=== PATIENT | male | born 1940 ===

== ENCOUNTER → 2023-05-23 | Outpatient (CLI) | payer MEDICARE ==
--- NOTE | 2023-05-24 17:06 | PE ---
EXAMINATION TYPE: PET CT fusion skull to thigh DATE OF EXAM: 05/23/2023 COMPARISON: None Prior PET/CT: None at this location HISTORY: Prostate cancer TECHNIQUE: Following the intravenous administration of 6.61 mCi of gallium 28 PSMA, whole body image s are performed from the skull base to the midthigh. Images are reviewed on the computer in the manuela nal, axial, and sagittal planes. Reconstructed rotating images are created on independent workstatio n and reviewed on the computer. A localization and attenuation correction CT is performed in conjun ction with the PET scan. DLP: 5-0.12 mGycm SCAN: Initial FINDINGS: NECK: There is normal uptake within the salivary glands. Right submandibular gland is larger than th e left THORAX: No abnormal uptake ABDOMEN: No abnormal uptake PELVIS: There is a focus of intense radiotracer within posterior pelvis, image 200, SUV 48.88. There is a punctate area of radiotracer within the right iliac chain region suspicious for metastatic lesio n, image 205. There is intense uptake within the inferior posterior lateral prostate with an SUV of 40.59. OSSEOUS STRUCTURES: No abnormal uptake LOCALIZATION CT: 1.7 cm nodules in the left posterior pelvis corresponding to the uptake on PET. Imag e 201 small nodule on the right image 205 measures 0.9 cm COMPARISON: None IMPRESSION: 1. 2 pelvic nodules with uptake suspicious for metastatic lymph nodes. 2. Patient's primary within the inferior lateral left prostate evident.
== END | disposition home or self-care (01) ==
LOC: RADPETMAIN 09:56
PROVIDERS: ATTEND Urology
DX: C61 Malignant neoplasm of prostate (principal)
CPT/HCPCS: 78815; A9596

== ENCOUNTER → 2023-09-23 | Outpatient (CLI) | payer MEDICARE | END | disposition home or self-care (01) | LOC: LABWHC1 14:16 | PROVIDERS: ATTEND Radiology Radiation Oncology | DX: C61 Malignant neoplasm of prostate (principal); C77.5 Secondary and unspecified malignant neoplasm of intrapelvic lymph nodes | CPT/HCPCS: 87086 ==

== ENCOUNTER → 2023-12-05 | Outpatient (CLI) | payer MEDICARE | END | disposition home or self-care (01) | LOC: LABWHC1 15:13 | PROVIDERS: ATTEND Radiology Radiation Oncology | CPT/HCPCS: 36415; 84153 ==

== ENCOUNTER 2024-07-03 16:40 | Inpatient (IN) | payer MEDICARE ==
--- NOTE | 2024-07-03 17:42 | ED ---
Dizziness HPI - General Chief Complaint: Dizziness Stated Complaint: Dizziness Time Seen by Provider: 07/03/24 17:21 Source: patient Mode of arrival: ambulatory Limitations: no limitations - History of Present Illness Initial Comments: This patient is an 84-year-old man with history of diabetes who presents with complaint that he has been feeling weak and lightheaded or dizzy going back a number of days. He states that he was prompted to check his blood sugar and it was over 500. The patient states that he does take metformin 500 mg usually twice per day but states that he sometimes does not stick to the diabetic diet. Patient denies symptoms of infection, no fever or chills, cough, change in urination or bowel movements. No chest pain. MD Complaint: dizziness, lightheadedness -: days(s) Timing: gradual onset Description: lightheadedness History of Same: Yes Severity: mild Improves With: remaining still Worsens With: nothing Associated Symptoms: weakness, other (Polydipsia) - Related Data Previous Rx's Medication Instructions Recorded Apixaban [Eliquis] 5 mg PO BID #60 tab 07/07/24 Atorvastatin [Lipitor] 20 mg PO HS #30 tab 07/07/24 Dapagliflozin Propanediol [Farxiga] 5 mg PO DAILY #30 tab 07/07/24 Metoprolol Succinate (ER) [Toprol 50 mg PO BID #60 tab 07/07/24 XL] metFORMIN HCL 500 mg PO BID #60 tab 07/07/24 Allergies Allergy/AdvReac Type Severity Reaction Status Date / Time No Known Allergies Allergy Verified 07/04/24 12:02 Review of Systems ROS Statement: Those systems with pertinent positive or pertinent negative responses have been documented in the HPI. ROS Other: All systems not noted in ROS Statement are negative. Constitutional: Reports: weakness. Denies: fever, chills Eyes: Denies: vision change ENT: Denies: throat pain, congestion Respiratory: Denies: cough, dyspnea Cardiovascular: Denies: chest pain, palpitations, edema, syncope Endocrine: Reports: polydipsia Gastrointestinal: Denies: abdominal pain, vomiting, diarrhea Genitourinary: Denies: dysuria, hematuria Musculoskeletal: Denies: back pain Skin: Denies: rash Neurological: Denies: headache, weakness Past Medical History Past Medical History: Atrial Fibrillation, Diabetes Mellitus Additional Past Medical History / Comment(s): prostate cx History of Any Multi-Drug Resistant Organisms: None Reported Additional Past Surgical History / Comment(s): prostate Past Psychological History: No Psychological Hx Reported Smoking Status: Never smoker Past Alcohol Use History: None Reported Past Drug Use History: None Reported General Exam Limitations: no limitations General appearance: alert, in no apparent distress Head exam: Present: atraumatic, normocephalic Eye exam: Present: normal appearance. Absent: scleral icterus, conjunctival injection ENT exam: Present: mucous membranes dry Neck exam: Present: normal inspection Respiratory exam: Present: normal lung sounds bilaterally. Absent: respiratory distress, wheezes, rales, rhonchi, stridor, accessory muscle use Cardiovascular Exam: Present: normal rhythm, tachycardia, normal heart sounds. Absent: systolic murmur, diastolic murmur, rubs, gallop GI/Abdominal exam: Present: soft. Absent: distended, tenderness, guarding, rebound, rigid, mass Extremities exam: Present: normal inspection, normal capillary refill. Absent: pedal edema, calf tenderness Back exam: Present: normal inspection Neurological exam: Present: alert Skin exam: Present: warm, dry, intact, normal color. Absent: rash Course Vital Signs 07/03/24 07/03/24 07/03/24 17:12 21:00 22:29 Temperature 97.9 F Pulse Rate 123 H 78 66 Respiratory 18 18 17 Rate Blood Pressure 95/62 105/80 102/68 O2 Sat by Pulse 95 96 96 Oximetry EKG Findings - EKG Results: EKG: interpreted by ERMD, normal axis EKG shows: tachycardia, atrial fibrillation (Underlying rhythm appears to be atrial flutter with rate 122) - Blocks, Parks, Hypertrophy, ST Abn: QRS axis and voltage: low voltage (<0.5 MV total QRS and <1.0 MV in each precordial lead) Medical Decision Making - Medical Decision Making Was pt. sent in by a medical professional or institution (, PA, ELECTRIC BATH ATTENDANT, urgent care, hospital, or [facility]...) When possible be specific @ -[No] Did you speak to anyone other than the patient for history (EMS, parent, family, police, friend...)? What history was obtained from this source @ -[No] Did you review nursing and triage notes (agree or disagree)? Why? @ -[I reviewed and agree with nursing and triage notes] Were old charts reviewed (outside hosp., previous admission, EMS record, old EKG, old radiological studies, urgent care reports/EKG's, [facility] records)? Report findings @ -[No old charts were reviewed] Differential Diagnosis (chest pain, altered mental status, abdominal pain women, abdominal pain men, vaginal bleeding, weakness, fever, dyspnea, syncope, headache, dizziness, GI bleed, back pain, seizure, CVA, palpatations, mental h ealth, musculoskeletal)? @ -Differential Dizziness: Benign paroxysmal positional Vertigo, Meniere's disease, otitis media, acoustic neuroma, vertebrobasilar insufficiency, cerebellar stroke, encephalitis, hypovolemic, arrhythmia, coronary artery syndrome, anemia, this is not meant to be an all-inclusive list EKG interpreted by me (3pts min.). @ -[I interpreted as above X-rays interpreted by me (1pt min.). @ -[I interpreted as above CT interpreted by me (1pt min.). @ -[None done] U/S interpreted by me (1pt. min.). @ -[None done] What testing was considered but not performed or refused? (CT, X-rays, U/S, labs)? Why? @ -[None] What meds were considered but not given or refused? Why? @ -[None] Did you discuss the management of the patient with other professionals (professionals i.e. , PA, ELECTRIC BATH ATTENDANT, lab, RT, psych nurse, social work supervisor, alfalfa dehydrator operator, teacher, lead security officer, human services case manager)? Give summary @ -[Case discussed with admitting physician and treatment recommendations incorporated Was smoking cessation discussed for >3mins.? @ -[No] Was critical care preformed (if so, how long)? @ -[No] Were there social determinants of health that impacted care today? How? (Homelessness, low income, unemployed, alcoholism, drug addiction, transportation, low edu. Level, literacy, decrease access to med. care, [place] [facility], rehab)? @ -[No] Was there de-escalation of care discussed even if they declined (Discuss DNR or withdrawal of care, Hospice)? DNR status @ -[No] What co-morbidities impacted this encounter? (DM, HTN, Smoking, COPD, CAD, Cancer, CVA, ARF, Chemo, Hep., AIDS, mental health diagnosis, sleep apnea, morbid obesity)? @ -[History of diabetes Was patient admitted / discharged? Hospital course, mention meds given and route, prescriptions, significant lab abnormalities, going to OR and other pertinent info. @ -[Patient is an 84-year-old man who arrives with complaint of feeling weak and dizzy/lightheaded. He has been hyperglycemic. The patient found to be in atrial fibrillation with rapid ventricular rate. The patient is admitted to have cardiology consultation. Patient is started on rate control here, will have further fluids and treatment for hyperglycemia as well. Undiagnosed new problem with uncertain prognosis? @ -[No] Drug Therapy requiring intensive monitoring for toxicity (Heparin, Nitro, Insulin, Cardizem)? @ -[No] Were any procedures done? @ -[No] Diagnosis/symptom? @ -[Acute hyperglycemia in diabetic patient Acute atrial fibrillation with rapid ventricular rate Acute, or Chronic, or Acute on Chronic? @ -[Acute Uncomplicated (without systemic symptoms) or Complicated (systemic symptoms)? @ -[Uncomplicated Side effects of treatment? @ -[No] Exacerbation, Progression, or Severe Exacerbation? @ -[No] Poses a threat to life or bodily function? How? (Chest pain, [place], [place], pneumonia, PE, COPD, DKA, ARF, appy, cholecystitis, CVA, Diverticulitis, Homicidal, Suicidal, threat to staff... and all critical care pts) @ -[No] All treatments are based on ideal body weight as in ED triage - Lab Data Result diagrams: 07/06/24 05:46 07/04/24 06:40 Lab Results 07/03/24 07/03/24 07/03/24 Range/Units 17:30 18:00 18:00 WBC 7.96 (4.50-10.00) 10*3/uL RBC 4.86 (4.40-5.60) 10*6/uL Hgb 16.2 (13.0-17.0) g/dL Hct 44.9 (39.6-50.0) % MCV 92.4 (80.0-97.0) fL MCH 33.3 H (27.0-32.0) pg MCHC 36.1 (32.0-37.0) g/dL Plt Count 149 (140-440) 10*3/uL MPV 9.2 L (9.5-12.2) fL Immature Gran % (Auto) 0.3 % Neutrophils % 79.5 % Lymphocytes % 13.1 % Monocytes % 6.7 % Eosinophils % 0.1 % Basophils % 0.3 % Immature Gran # 0.02 (0.00-0.04) 10*3/uL Neutrophils # 6.34 (1.80-7.70) 10*3/uL Lymphocytes # 1.04 (0.90-5.00) 10*3/uL Monocytes # 0.53 (0.20-1.00) 10*3/uL Eosinophils # 0.01 L (0.04-0.35) 10*3/uL Basophils # 0.02 (0.00-0.10) 10*3/uL Sodium 131 L (137-145) mmol/L Potassium 4.8 (3.5-5.1) mmol/L Chloride 94 L (98-107) mmol/L Carbon Dioxide 22 (22-30) mmol/L Anion Gap 15 mmol/L BUN 21 H (9-20) mg/dL Creatinine 0.82 (0.66-1.25) mg/dL Est GFR (CKD-EPI)AfAm >90 (>60 ml/min/1.73 sqM) Est GFR (CKD-EPI)NonAf 81 (>60 ml/min/1.73 sqM) Glucose 326 H (74-99) mg/dL Lactic Ac Sepsis Rflx Plasma Lactic Acid Boris (0.7-2.0) mmol/L Calcium 9.5 (8.4-10.2) mg/dL Total Bilirubin 1.4 H (0.2-1.3) mg/dL AST 29 (17-59) U/L ALT 28 (4-49) U/L Alkaline Phosphatase 45 (38-126) U/L Troponin I (0.000-0.034) ng/mL Total Protein 7.4 (6.3-8.2) g/dL Albumin 4.5 (3.5-5.0) g/dL Urine Color Light Yellow Urine Appearance Clear (Clear) Urine pH 5.5 (5.0-8.0) Ur Specific [place] 1.012 (1.001-1.035) Urine Protein Negative (Negative) Urine Glucose (UA) 4+ H (Negative) Urine Ketones Trace H (Negative) Urine Blood Negative (Negative) Urine Nitrite Negative (Negative) Urine Bilirubin Negative (Negative) Urine Urobilinogen <2.0 (<2.0) mg/dL Ur Leukocyte Esterase Negative (Negative) Acetone, Qual Negative (Negative) 07/03/24 07/03/24 07/03/24 Range/Units 18:00 18:00 18:30 WBC (4.50-10.00) 10*3/uL RBC (4.40-5.60) 10*6/uL Hgb (13.0-17.0) g/dL Hct (39.6-50.0) % MCV (80.0-97.0) fL MCH (27.0-32.0) pg MCHC (32.0-37.0) g/dL Plt Count (140-440) 10*3/uL MPV (9.5-12.2) fL Immature Gran % (Auto) % Neutrophils % % Lymphocytes % % Monocytes % % Eosinophils % % Basophils % % Immature Gran # (0.00-0.04) 10*3/uL Neutrophils # (1.80-7.70) 10*3/uL Lymphocytes # (0.90-5.00) 10*3/uL Monocytes # (0.20-1.00) 10*3/uL Eosinophils # (0.04-0.35) 10*3/uL Basophils # (0.00-0.10) 10*3/uL Sodium (137-145) mmol/L Potassium (3.5-5.1) mmol/L Chloride (98-107) mmol/L Carbon Dioxide (22-30) mmol/L Anion Gap mmol/L BUN (9-20) mg/dL Creatinine (0.66-1.25) mg/dL Est GFR (CKD-EPI)AfAm (>60 ml/min/1.73 sqM) Est GFR (CKD-EPI)NonAf (>60 ml/min/1.73 sqM) Glucose (74-99) mg/dL Lactic Ac Sepsis Rflx Y Plasma Lactic Acid Boris 3.4 H* (0.7-2.0) mmol/L Calcium (8.4-10.2) mg/dL Total Bilirubin (0.2-1.3) mg/dL AST (17-59) U/L ALT (4-49) U/L Alkaline Phosphatase (38-126) U/L Troponin I 0.023 (0.000-0.034) ng/mL Total Protein (6.3-8.2) g/dL Albumin (3.5-5.0) g/dL Urine Color Urine Appearance (Clear) Urine pH (5.0-8.0) Ur Specific [place] (1.001-1.035) Urine Protein (Negative) Urine Glucose (UA) (Negative) Urine Ketones (Negative) Urine Blood (Negative) Urine Nitrite (Negative) Urine Bilirubin (Negative) Urine Urobilinogen (<2.0) mg/dL Ur Leukocyte Esterase (Negative) Acetone, Qual (Negative) Disposition Clinical Impression: Atrial flutter with rapid ventricular response, Hyperglycemia Disposition: ADMITTED IP TO THIS HOSP Condition: Stable Is patient prescribed a controlled substance at d/c from ED?: No
[2024-07-03 17:58] LABS: Appearance,Urine Clear (Clear); Bilirubin,Urine Negative (Negative); Blood,Urine Negative (Negative); Color,Urine Light Yellow; Glucose,Urine (UA) 4+ (Negative); Ketones,Urine Trace (Negative); Leukocyte Esterase,Urine Negative (Negative); Nitrite,Urine Negative (Negative); PH, Urine 5.5 (5.0-8.0); Protein,Urine Negative (Negative); Specific Gravity,Urine 1.012 (1.001-1.035); Urobilinogen,Urine <2.0 mg/dL (<2.0)
[2024-07-03 18:11] LABS: Basophils # (A) 0.02 10*3/uL (0.00-0.10); Basophils % (A) 0.3 %; Eosinophils # (A) 0.01 10*3/uL (0.04-0.35); Eosinophils % (A) 0.1 %; HCT 44.9 % (39.6-50.0); HGB 16.2 g/dL (13.0-17.0); Lymphocytes # (A) 1.04 10*3/uL (0.90-5.00); Lymphocytes % (A) 13.1 %; MCH 33.3 pg (27.0-32.0); MCHC 36.1 g/dL (32.0-37.0); MCV 92.4 fL (80.0-97.0); Mean Platelet Volume 9.2 fL (9.5-12.2); Monocytes # (A) 0.53 10*3/uL (0.20-1.00); Monocytes % (A) 6.7 %; Neutrophils # (A) 6.34 10*3/uL (1.80-7.70); Neutrophils % (A) 79.5 %; Platelet Count 149 10*3/uL (140-440); RBC 4.86 10*6/uL (4.40-5.60); RDW 11.6 % (11.5-14.5); WBC 7.96 10*3/uL (4.50-10.00)
[2024-07-03] MEDS: SODIUM CHLORIDE 0.9% 1,000 ML IV STA (18:19)
[2024-07-03 18:28] LABS: ALT 28 U/L (4-49); AST 29 U/L (17-59); African American GFR (CKD) >90 (>60 ml/min/1.73 sqM); Albumin 4.5 g/dL (3.5-5.0); Alkaline Phosphatase 45 U/L (38-126); Anion Gap 15 mmol/L; Blood Urea Nitrogen 21 mg/dL (9-20); Calcium 9.5 mg/dL (8.4-10.2); Carbon Dioxide 22 mmol/L (22-30); Chloride 94 mmol/L (98-107); Glucose 326 mg/dL (74-99); Non-African American GFR(CKD) 81 (>60 ml/min/1.73 sqM); Potassium 4.8 mmol/L (3.5-5.1); Sodium 131 mmol/L (137-145); Total Bilirubin 1.4 mg/dL (0.2-1.3); Total Protein 7.4 g/dL (6.3-8.2)
[2024-07-03] MEDS: SODIUM CHLORIDE 0.9% 1,000 ML IV ONE (20:14)
[2024-07-03] MEDS: INSULIN REGULAR 100 UNIT/ML VIAL (IV) SQ STA (20:19)
[2024-07-03] MEDS: DILTIAZEM 125 MG in DEXTROSE 5% IN WATER 100 ML IV SCH (20:20)
[2024-07-03] MEDS: DILTIAZEM 5 MG/ML 5 ML VIAL IVP STA (20:20)
[2024-07-03] MEDS ORDERED: NITROGLYCERIN SL TABS 0.4 MG TAB SUBLINGUAL PRN (20:47)
[2024-07-03] MEDS ORDERED: DEXTROSE 50% SYRINGE 50 ML IVP PRN ×2 (21:46)
--- NOTE | 2024-07-03 22:47 | P.HPIM ---
History of Present Illness H&P Date: 07/03/24 History of present illness; 84-year-old male with PMH of diabetes who presents emerged part send has been feeling weak, lightheaded and dizzy going back "a number of days". States that he was prompted to check his blood sugar and it was > 500. States that he takes metformin 500 mg twice daily, however endorses not maintaining a diabetic diet all the time. He denies fever, chills, cough, change in urination or bowel habits. He notes having felt occasional chest palpitations earlier in the day. On arrival to the emergency room he was noted to be in atrial flutter on EKG. He notes that he had previously been told he was in atrial fibrillation and states that he had followed up with a instrumentation designer, however at that time stated that he was no longer in atrial fibrillation and was not placed on any medications. Labratory review: -WBC 7.96, hemoglobin 16.2, hematocrit 44.9, platelet 149; sodium 131, potassium 4.8, bicarb 22, BUN 21, creatinine 0.82, lactic acid 3.4, calcium 9.5, total bilirubin 1.4, AST 29, ALT 28, alkaline phosphatase 45 - Troponin 0.023 - Urinalysis 4+ glucose with trace ketones Imaging: -EKG done in the ER independently read and interpreted showed heart rate of 122, with atrial flutter/tachycardia with RVR Vitals: - On arrival: Blood pressure 95/62, heart rate 123, respiratory 18, SpO2 95% on room air - Most recently: Blood pressure 105/80, heart rate 78, respiratory 18, SpO2 96% on room air Patient admitted to internal medicine service REVIEW OF SYSTEMS: Pertinent positives and negatives noted in HPI. The rest of the 14-point review of systems is negative. Physical Exam: General: nontoxic, no distress, appears at stated age Derm: warm, dry, intact Head: atraumatic, normocephalic, symmetric Eyes: EOMI, anicteric sclera Mouth: no lip lesion, mucus membranes moist Cardiovascular: S1 S2 regular rate, irregular rhythm Lungs: CTA bilateral, no rales, no accessory muscle use Abdominal: soft, non-tender to palpataion, no appreciable organomegaly Extremities: no gross muscle atrophy, no edema, no contractures Neuro: Alert, Oriented, CNII-XII grossly intact, gait normal Psych: well appearing, appropriate affect Assessment and plan 84-year-old male with PMH of diabetes who presents emerged part send has been feeling weak, lightheaded and dizzy going back "a number of days". States that he was prompted to check his blood sugar and it was > 500. On EKG in the ED he was noted to be in a flutter/tachycardia with RVR. #New onset atrial flutter with RVR - Trend troponins: 0.023 -> 0.024 - Received 5 mg IVP Cardizem in the emergency department - Heart rate on arrival 123, on recheck ~4 hours later 78 - Continue with Cardizem drip at 5 cc/h - Initiate on metoprolol succinate 25 mg twice daily - Echocardiogram ordered, currently pending - [id number] score of 3, indicating recommendation of long-term oral anticoagulation - initiate on Eliquis 5 mg twice daily - TSH ordered, currently pending - Cardiac monitoring - Cardiology consulted #Uncontrolled non-insulin dependent diabetes mellitus - Glucose on arrival shown to be 326 - Urinalysis shows 4+ glucose and trace ketones - Hold any oral medications - Accu-Cheks ACHS, sliding scale initiated - Hemoglobin A1c ordered, currently pending - Monitor for hypoglycemia #Lactic acidosis #Hyponatremia - Lactic acid on arrival 3.4, sodium on arrival 131 - Received 1 L normal saline bolus in ED; will receive another 1 L bolus - Continue monitor lactic acid and BMP GI prophylaxis: None DVT prophylaxis: Eliquis 5 mg twice daily The patient is admitted with an anticipated more than than 2 midnight stay for evaluation of new onset a flutter with RVR. CODE STATUS: Full code Discussed with: Patient Anticipated discharge place: Home Dictation was produced using [employer] dictation software. please excuse any grammatical, word or spelling errors. Mauricio Sandra MD PGY-1 IM Past Medical History Past Medical History: Atrial Fibrillation, Diabetes Mellitus Additional Past Medical History / Comment(s): prostate cx History of Any Multi-Drug Resistant Organisms: None Reported Additional Past Surgical History / Comment(s): prostate Past Psychological History: No Psychological Hx Reported Smoking Status: Never smoker Past Alcohol Use History: None Reported Past Drug Use History: None Reported Medications and Allergies Allergies Allergy/AdvReac Type Severity Reaction Status Date / Time No Known Allergies Allergy Verified 07/03/24 17:24 Physical Exam Vitals: Vital Signs Temp Pulse Resp BP Pulse Ox 07/03/24 21:00 78 18 105/80 96 07/03/24 17:12 97.9 F 123 H 18 95/62 95 Intake and Output 07/03/24 07/03/24 07/03/24 06:59 14:59 22:59 Other: Weight 63.503 kg Results CBC & Chem 7: 07/03/24 18:00 07/04/24 00:12 Labs: Abnormal Lab Results - Last 24 Hours (Table) 07/03/24 07/03/24 07/03/24 Range/Units 17:30 18:00 18:00 MCH 33.3 H (27.0-32.0) pg MPV 9.2 L (9.5-12.2) fL Eosinophils # 0.01 L (0.04-0.35) 10*3/uL Sodium 131 L (137-145) mmol/L Chloride 94 L (98-107) mmol/L BUN 21 H (9-20) mg/dL Glucose 326 H (74-99) mg/dL Plasma Lactic Acid Boris (0.7-2.0) mmol/L Total Bilirubin 1.4 H (0.2-1.3) mg/dL Urine Glucose (UA) 4+ H (Negative) Urine Ketones Trace H (Negative) 07/03/24 Range/Units 18:00 MCH (27.0-32.0) pg MPV (9.5-12.2) fL Eosinophils # (0.04-0.35) 10*3/uL Sodium (137-145) mmol/L Chloride (98-107) mmol/L BUN (9-20) mg/dL Glucose (74-99) mg/dL Plasma Lactic Acid Boris 3.4 H* (0.7-2.0) mmol/L Total Bilirubin (0.2-1.3) mg/dL Urine Glucose (UA) (Negative) Urine Ketones (Negative)
[2024-07-04 00:59] LABS: ALT 24 U/L (4-49); AST 20 U/L (17-59); African American GFR (CKD) >90 (>60 ml/min/1.73 sqM); Albumin 3.5 g/dL (3.5-5.0); Alkaline Phosphatase 45 U/L (38-126); Anion Gap 12 mmol/L; Blood Urea Nitrogen 20 mg/dL (9-20); Calcium 8.9 mg/dL (8.4-10.2); Carbon Dioxide 21 mmol/L (22-30); Chloride 102 mmol/L (98-107); Glucose 169 mg/dL (74-99); Non-African American GFR(CKD) 86 (>60 ml/min/1.73 sqM); Potassium 3.8 mmol/L (3.5-5.1); Sodium 135 mmol/L (137-145); Total Bilirubin 0.6 mg/dL (0.2-1.3); Total Protein 6.2 g/dL (6.3-8.2)
[2024-07-04] MEDS: APIXABAN 2.5 MG TABLET PO SCH (01:13)
[2024-07-04] MEDS: SODIUM CHLORIDE 0.9% 1,000 ML IV ONE (03:29)
[2024-07-04 06:28] LABS: Glucose,Whole Blood 214 mg/dL (70-110)
[2024-07-04] MEDS: INSULIN LISPRO (HumaLOG) 100 UNIT/ML 10 mL VL SQ SCH ×2 (06:48→16:35)
[2024-07-04 07:24] LABS: Basophils # (A) 0.03 10*3/uL (0.00-0.10); Basophils % (A) 0.5 %; Eosinophils # (A) 0.09 10*3/uL (0.04-0.35); Eosinophils % (A) 1.6 %; HCT 36.3 % (39.6-50.0); Immature Platelet Fraction 1.8 % (1.1-6.1); Lymphocytes # (A) 1.46 10*3/uL (0.90-5.00); Lymphocytes % (A) 26.2 %; MCHC 34.7 g/dL (32.0-37.0); Mean Platelet Volume 9.9 fL (9.5-12.2); Monocytes # (A) 0.62 10*3/uL (0.20-1.00); Monocytes % (A) 11.1 %; Neutrophils # (A) 3.37 10*3/uL (1.80-7.70); Neutrophils % (A) 60.4 %; RBC 3.82 10*6/uL (4.40-5.60); RDW 11.8 % (11.5-14.5); WBC 5.58 10*3/uL (4.50-10.00)
[2024-07-04 07:42] LABS: HGB 12.6 g/dL (13.0-17.0)
[2024-07-04 07:46] LABS: African American GFR (CKD) >90 (>60 ml/min/1.73 sqM); Anion Gap 8 mmol/L; Blood Urea Nitrogen 18 mg/dL (9-20); Calcium 8.5 mg/dL (8.4-10.2); Carbon Dioxide 23 mmol/L (22-30); Chloride 104 mmol/L (98-107); Glucose 186 mg/dL (74-99); Magnesium 1.6 mg/dL (1.6-2.3); Non-African American GFR(CKD) 84 (>60 ml/min/1.73 sqM); Potassium 3.8 mmol/L (3.5-5.1); Sodium 135 mmol/L (137-145)
[2024-07-04] MEDS: DAPAGLIFLOZIN PROPANEDIOL 5 MG TABLET PO SCH (08:40)
[2024-07-04] MEDS: METOPROLOL SUCCINATE (ER) 25 MG TAB.ER.24H PO SCH ×2 (08:40→16:34)
[2024-07-04] MEDS: APIXABAN 5 MG TAB PO SCH (08:42)
[2024-07-04 08:58] LABS: HCT 36.3 % (39.6-50.0); HGB 12.9 g/dL (13.0-17.0); MCH 33.7 pg (27.0-32.0); MCHC 35.5 g/dL (32.0-37.0); MCV 94.8 fL (80.0-97.0); Mean Platelet Volume 9.7 fL (9.5-12.2); Platelet Count 142 10*3/uL (140-440); RBC 3.83 10*6/uL (4.40-5.60); RDW 11.9 % (11.5-14.5); WBC 5.04 10*3/uL (4.50-10.00)
[2024-07-04] MEDS ORDERED: ASPIRIN 325 MG TAB PO SCH (09:00)
[2024-07-04 09:02] LABS: Platelet Count 139 10*3/uL (140-440)
[2024-07-04 11:33] LABS: Glucose,Whole Blood 295 mg/dL (70-110)
--- NOTE | 2024-07-04 11:45 | P.CRDCN ---
History of Present Illness Consult date: 07/04/24 Consult reason: atrial flutter History of present illness: This is Leon Knott NP, I'm dictating on behalf of Dr. Cohen's H&P and A&P The patient was interviewed and examined. HPI: Patient is a pleasant 84-year-old male with a past medical history that includes atrial fibrillation, diabetes, and prostate cancer who presents to the hospital with complaints of weakness, lightheadedness, and dizziness, for "a number of days". Patient reports that his blood sugar was very elevated, over 500. He reported feeling occasional palpitations. Due to his concerning symptoms he arrived to the emergency department for evaluation[facility] patient was found to be in atrial flutter with a heart rate in the 120's. He was started on a diltiazem drip, which has controlled his heart rate. Cardiology was consulted due to the atrial flutter. ROS: [No fever, chills, or rigors] [no cough, phlegm, or expectoration] [no nausea, vomiting, or diarrhea] [no hematuria, dysuria] [no musculoskelatal complaints] [no strokes or seizures] [no skin lesions] EXAMINATION: GENERAL: Well-appearing, well-nourished and in no acute distress. NECK: Supple without JVD or thyromegaly. LUNGS: Breath sounds clear to auscultation bilaterally. Respiration equal and unlabored. No wheezes, rales or rhonchi. HEART: Regular rate and rhythm without murmurs, rubs or gallops. S1 and S2 heard. EXTREMITIES: Normal range of motion, no edema. No clubbing or cyanosis. Peripheral pulses intact and strong. REVIEW OF LABS, ECG & MEDICAL DATA: LABS: White count 5, hemoglobin 12.9, platelets 142, sodium 135, potassium 3.8, chloride 104, BUN 18, creatinine 0.76, hemoglobin A1c 9.2, calcium 8.5, magnesium 1.6, troponin-0.023, 0.024, 0.029, TSH 3.23 EKG: Atrial flutter IMAGING: No imaging VITALS: Temp 97.8, pulse 62, respirations 17, blood pressure 94/60, O2 saturation 95% on room air IMPRESSION: 1. Atrial flutter/tachycardia, currently controlled 2. Type 2 diabetes 3. Anemia of unknown origin, patient had a 4 g drop in hemoglobin since admission. PLAN: Increase metoprolol to 25 mg 3 times a day. Discontinue diltiazem drip. Recommend GI consult for anemia workup. Further recommendations based on patient's clinical course. Thank you for the consult and allowing us to participate in the care of this patient. Past Medical History Past Medical History: Atrial Fibrillation, Diabetes Mellitus Additional Past Medical History / Comment(s): prostate cx History of Any Multi-Drug Resistant Organisms: None Reported Additional Past Surgical History / Comment(s): prostate Past Anesthesia/Blood Transfusion Reactions: Unable to Obtain Past Psychological History: No Psychological Hx Reported Smoking Status: Never smoker Past Alcohol Use History: None Reported Past Drug Use History: None Reported Medications and Allergies Allergies Allergy/AdvReac Type Severity Reaction Status Date / Time No Known Allergies Allergy Verified 07/03/24 17:24 Physical Exam Vitals: Vital Signs Temp Pulse Pulse Resp BP BP Pulse Ox 07/04/24 08:38 97.8 F 62 17 94/60 95 07/04/24 03:39 97.6 F 91 16 80/58 93 L 07/04/24 00:58 97.8 F 73 16 90/63 95 07/04/24 00:00 97.9 F 83 18 122/67 96 07/03/24 22:29 66 17 102/68 96 07/03/24 21:00 78 18 105/80 96 07/03/24 17:12 97.9 F 123 H 18 95/62 95 Intake and Output 07/03/24 07/04/24 07/04/24 22:59 06:59 14:59 Intake Total 1540 296.917 Output Total 500 Balance 1040 296.917 Intake: Intake, IV Titration 1000 56.917 Amount Diltiazem 125 mg In 56.917 Dextrose 5% in Water 100 ml @ 5 MG/HR 5 mls/hr IV .Q24H [facility] Rx#:[id number] Sodium Chloride 0.9% 1, 1000 000 ml @ 999 mls/hr IV . Q1H1M [facility] Rx#:[id number] Oral 540 240 Output: Urine 500 Other: Voiding Method Urinal Urinal # Voids 1 # Bowel Movements 1 Weight 63.503 kg 65.5 kg Results 07/04/24 08:21 07/04/24 06:40 Cardiac Enzymes 07/03/24 07/03/24 07/03/24 Range/Units 18:00 18:00 21:25 AST 29 (17-59) U/L Troponin I 0.023 0.024 (0.000-0.034) ng/mL 07/04/24 07/04/24 Range/Units 00:01 00:12 AST 20 (17-59) U/L Troponin I 0.029 (0.000-0.034) ng/mL CBC 07/03/24 07/04/24 07/04/24 Range/Units 18:00 06:40 08:21 WBC 7.96 5.58 5.04 (4.50-10.00) 10*3/uL RBC 4.86 3.82 L 3.83 L (4.40-5.60) 10*6/uL Hgb 16.2 12.6 L D 12.9 L (13.0-17.0) g/dL Hct 44.9 36.3 L 36.3 L (39.6-50.0) % Plt Count 149 139 L 142 (140-440) 10*3/uL Comprehensive Metabolic Panel 07/03/24 07/04/24 07/04/24 Range/Units 18:00 00:12 06:40 Sodium 131 L 135 L 135 L (137-145) mmol/L Potassium 4.8 3.8 3.8 (3.5-5.1) mmol/L Chloride 94 L 102 104 (98-107) mmol/L Carbon Dioxide 22 21 L 23 (22-30) mmol/L BUN 21 H 20 18 (9-20) mg/dL Creatinine 0.82 0.72 0.76 (0.66-1.25) mg/dL Glucose 326 H 169 H 186 H (74-99) mg/dL Calcium 9.5 8.9 8.5 (8.4-10.2) mg/dL AST 29 20 (17-59) U/L ALT 28 24 (4-49) U/L Alkaline Phosphatase 45 45 (38-126) U/L Total Protein 7.4 6.2 L (6.3-8.2) g/dL Albumin 4.5 3.5 (3.5-5.0) g/dL Current Medications Generic Name Dose Route Start Last Admin Trade Name Freq PRN Reason Stop Dose Admin Apixaban 5 mg 07/04/24 09:00 07/04/24 10:45 Apixaban 5 Mg Tab PO 5 mg BID ANEL Administration Protocol Dapagliflozin 5 mg 07/04/24 09:00 07/04/24 08:40 Dapagliflozin Propanediol 5 Mg Tablet PO 5 mg DAILY ANEL Administration Dextrose/Water 25 ml 07/03/24 21:46 Dextrose 50% Syringe 50 Ml IVP PER PROTOCOL PRN Hypoglycemia Protocol Dextrose/Water 50 ml 07/03/24 21:46 Dextrose 50% Syringe 50 Ml IVP PER PROTOCOL PRN Hypoglycemia Protocol Insulin Human Lispro 0 unit 07/04/24 07:30 07/04/24 06:48 Insulin Lispro (Humalog) 100 Unit/Ml 10 Ml Vl SQ 2 unit ACHS ANEL Administration Protocol Metoprolol Succinate 25 mg 07/04/24 16:00 Metoprolol Succinate (Er) 25 Mg Tab.Er.24h PO TID ANEL Nitroglycerin 0.4 mg 07/03/24 20:47 Nitroglycerin Sl Tabs 0.4 Mg Tab SUBLINGUAL Q5M PRN Chest Pain Intake and Output 07/03/24 07/04/24 07/04/24 22:59 06:59 14:59 Intake Total 1540 296.917 Output Total 500 Balance 1040 296.917 Intake: Intake, IV Titration 1000 56.917 Amount Diltiazem 125 mg In 56.917 Dextrose 5% in Water 100 ml @ 5 MG/HR 5 mls/hr IV .Q24H [facility] Rx#:[id number] Sodium Chloride 0.9% 1, 1000 000 ml @ 999 mls/hr IV . Q1H1M [facility] Rx#:[id number] Oral 540 240 Output: Urine 500 Other: Voiding Method Urinal Urinal # Voids 1 # Bowel Movements 1 Weight 63.503 kg 65.5 kg 07/04/24 08:21 07/04/24 06:40
[2024-07-04 12:30] LABS: HCT 36.1 % (39.6-50.0); MCH 33.9 pg (27.0-32.0); Mean Platelet Volume 9.6 fL (9.5-12.2); Platelet Count 134 10*3/uL (140-440); RBC 3.84 10*6/uL (4.40-5.60); RDW 11.9 % (11.5-14.5); WBC 5.16 10*3/uL (4.50-10.00)
--- NOTE | 2024-07-04 13:29 | P.PN ---
Subjective Progress Note Date: 07/04/24 Hospital Course: An 84-year-old male with past medical history of poorly controlled type II DM not on insulin, atrial fibrillation, prostate cancer, who presented to the ER on 07/03/2024 with weakness, lightheadedness, lasting for several days. States that he was prompted to check his blood sugar and it was > 500. States that he takes metformin 500 mg twice daily, however endorses not maintaining a diabetic diet all the time. He denies fever, chills, cough, change in urination or bowel hab its. He notes having felt occasional chest palpitations earlier in the day. On arrival to the emergency room he was noted to be in atrial flutter on EKG. He notes that he had previously been told he was in atrial fibrillation and states that he had followed up with a patient care assistant, however at that time stated that he was no longer in atrial fibrillation and was not placed on any medications. Un derwent extensive workup and that showed normal WBC count, hemoglobin 16 point, creatinine 0.8, lactic acid 2.4, total bili 1.4, troponin 0.0 23, UA with glucosuria, EKG showed a flutter with RVR, BP was 96/62 on admission, SpO2 normal. She was admitted with cardiology on consult, was started on Cardizem drip and Eliquis, TTE ordered. TSH was normal. 07/04: Seen examined at bedside, no acute complaints, cardiology increased metoprolol to 25 mg 3 times daily, Cardizem drip was discontinued earlier this morning. Hemoglobin this morning 12.9, no blood in stool or urine reported, repeat hemoglobin stable at 13.0, likely hemodilution, patient received 3 L of IV fluids since admission. A1c 9.2, previously around 8. TTE pending Pertinent positives and negatives as discussed above, a complete review of systems was performed and all other systems are negative. Vitals Signs Reviewed. General: [nontoxic], [no distress], [appears at stated age] Derm: [warm], [dry] Head: [atraumatic], [normocephalic], [symmetric] Eyes: [EOMI], [no lid lag], [anicteric sclera] Mouth: [no lip lesion], [mucus membranes moist] Cardiovascular: [S1S2 reg, tachycardic], [no murmur] Lungs: [CTA bilateral], [no rhonchi, no rales] , [no accessory muscle use] Abdominal: [soft], [ nontender to palpation], [no guarding], [no appreciable organomegaly] Ext: [no gross muscle atrophy], [no edema], [no contractures] Neuro: [ CN II-XI grossly intact], [no focal neuro deficits] Psych: [Alert], [oriented], [appropriate affect] Assessment and Plan: Atrial flutter/tachycardia, now rate controlled - Cardiology consulted, appreciate recommendations, metoprolol increased to 25 mg p.o. 3 times daily - Cardizem drip discontinued - TTE ordered and pending - Continue telemetry - TSH normal Hemoglobin drop, likely hemodilution -Hemoglobin this morning 12.9, no blood in stool or urine reported, repeat hemoglobin stable at 13.0, likely hemodilution, patient received 3 L of IV fluids since admission, discussed with RN - CBC in the morning -Hemoccult pending Uncontrolled type II DM not on home insulin - A1c 9.4 - At basal bolus with Lantus 10, mealtime 3, continue SSI, Accu-Cheks, hypoglycemia precautions Pseudohyponatremia in the settings of hyperglycemia DVT ppx: Eliquis Code status: Full code Anticipated discharge place: Home Anticipated discharge time: 24 to 48 hours Objective - Vital Signs Vital signs: Vital Signs Temp 97.8 F 07/04/24 08:38 Pulse 75 07/04/24 12:11 Resp 17 07/04/24 12:11 BP 122/72 07/04/24 12:11 Pulse Ox 95 07/04/24 08:38 FiO2 Intake & Output 07/03/24 07/04/24 07/04/24 18:59 06:59 18:59 Intake Total 1540 296.917 Output Total 500 Balance 1040 296.917 Weight 63.503 kg 65.5 kg Intake: Intake, IV Titration 1000 56.917 Amount Diltiazem 125 mg In 56.917 Dextrose 5% in Water 100 ml @ 5 MG/HR 5 mls/hr IV .Q24H [facility] Rx#:[id number] Sodium Chloride 0.9% 1, 1000 000 ml @ 999 mls/hr IV . Q1H1M [facility] Rx#:[id number] Oral 540 240 Output: Urine 500 Other: Voiding Method Urinal Urinal # Voids 1 # Bowel Movements 1 - Labs CBC & Chem 7: 07/04/24 12:01 07/04/24 06:40 Labs: Abnormal Lab Results - Last 24 Hours (Table) 07/03/24 07/03/24 07/03/24 Range/Units 17:30 18:00 18:00 RBC (4.40-5.60) 10*6/uL Hgb (13.0-17.0) g/dL Hct (39.6-50.0) % MCH 33.3 H (27.0-32.0) pg Plt Count (140-440) 10*3/uL MPV 9.2 L (9.5-12.2) fL Eosinophils # 0.01 L (0.04-0.35) 10*3/uL Sodium 131 L (137-145) mmol/L Chloride 94 L (98-107) mmol/L Carbon Dioxide (22-30) mmol/L BUN 21 H (9-20) mg/dL Glucose 326 H (74-99) mg/dL POC Glucose (mg/dL) (70-110) mg/dL Hemoglobin A1c (<=6.0) % Plasma Lactic Acid Boris (0.7-2.0) mmol/L Total Bilirubin 1.4 H (0.2-1.3) mg/dL Total Protein (6.3-8.2) g/dL Urine Glucose (UA) 4+ H (Negative) Urine Ketones Trace H (Negative) 07/03/24 07/03/24 07/04/24 Range/Units 18:00 21:25 00:12 RBC (4.40-5.60) 10*6/uL Hgb (13.0-17.0) g/dL Hct (39.6-50.0) % MCH (27.0-32.0) pg Plt Count (140-440) 10*3/uL MPV (9.5-12.2) fL Eosinophils # (0.04-0.35) 10*3/uL Sodium (137-145) mmol/L Chloride (98-107) mmol/L Carbon Dioxide (22-30) mmol/L BUN (9-20) mg/dL Glucose (74-99) mg/dL POC Glucose (mg/dL) (70-110) mg/dL Hemoglobin A1c 9.2 H (<=6.0) % Plasma Lactic Acid Boris 3.4 H* 2.9 H* (0.7-2.0) mmol/L Total Bilirubin (0.2-1.3) mg/dL Total Protein (6.3-8.2) g/dL Urine Glucose (UA) (Negative) Urine Ketones (Negative) 07/04/24 07/04/24 07/04/24 Range/Units 00:12 06:27 06:40 RBC 3.82 L (4.40-5.60) 10*6/uL Hgb 12.6 L D (13.0-17.0) g/dL Hct 36.3 L (39.6-50.0) % MCH 33.0 H (27.0-32.0) pg Plt Count 139 L (140-440) 10*3/uL MPV (9.5-12.2) fL Eosinophils # (0.04-0.35) 10*3/uL Sodium 135 L (137-145) mmol/L Chloride (98-107) mmol/L Carbon Dioxide 21 L (22-30) mmol/L BUN (9-20) mg/dL Glucose 169 H (74-99) mg/dL POC Glucose (mg/dL) 214 H (70-110) mg/dL Hemoglobin A1c (<=6.0) % Plasma Lactic Acid Boris (0.7-2.0) mmol/L Total Bilirubin (0.2-1.3) mg/dL Total Protein 6.2 L (6.3-8.2) g/dL Urine Glucose (UA) (Negative) Urine Ketones (Negative) 07/04/24 07/04/24 07/04/24 Range/Units 06:40 08:21 11:31 RBC 3.83 L (4.40-5.60) 10*6/uL Hgb 12.9 L (13.0-17.0) g/dL Hct 36.3 L (39.6-50.0) % MCH 33.7 H (27.0-32.0) pg Plt Count (140-440) 10*3/uL MPV (9.5-12.2) fL Eosinophils # (0.04-0.35) 10*3/uL Sodium 135 L (137-145) mmol/L Chloride (98-107) mmol/L Carbon Dioxide (22-30) mmol/L BUN (9-20) mg/dL Glucose 186 H (74-99) mg/dL POC Glucose (mg/dL) 295 H (70-110) mg/dL Hemoglobin A1c (<=6.0) % Plasma Lactic Acid Boris (0.7-2.0) mmol/L Total Bilirubin (0.2-1.3) mg/dL Total Protein (6.3-8.2) g/dL Urine Glucose (UA) (Negative) Urine Ketones (Negative) 07/04/24 Range/Units 12:01 RBC 3.84 L (4.40-5.60) 10*6/uL Hgb (13.0-17.0) g/dL Hct 36.1 L (39.6-50.0) % MCH 33.9 H (27.0-32.0) pg Plt Count 134 L (140-440) 10*3/uL MPV (9.5-12.2) fL Eosinophils # (0.04-0.35) 10*3/uL Sodium (137-145) mmol/L Chloride (98-107) mmol/L Carbon Dioxide (22-30) mmol/L BUN (9-20) mg/dL Glucose (74-99) mg/dL POC Glucose (mg/dL) (70-110) mg/dL Hemoglobin A1c (<=6.0) % Plasma Lactic Acid Boris (0.7-2.0) mmol/L Total Bilirubin (0.2-1.3) mg/dL Total Protein (6.3-8.2) g/dL Urine Glucose (UA) (Negative) Urine Ketones (Negative)
--- NOTE | 2024-07-04 15:14 | CA ---
Transthoracic Echo Report Name: Erlin Jameson Age: 84 Gender: M : 1940 Exam Date: 07/04/2024 07:40 Exam Location: [place] [facility] Ht (in): 65 Wt (lb): 140 Ordering Physician: Travon Sandra MD Attending/Referring Phys: [employer] Install[employer] Supervisor Love Mcdonald RDCS Procedure CPT: Indications: new onset a flutter Cardiac Hx: Technical Quality: Good Contrast 1: Total Dose (mL): Contrast 2: Total Dose (mL): MEASUREMENTS (Male / Female) Normal Values 2D ECHO LV Diastolic Diameter PLAX 3.3 cm 4.2 - 5.9 / 3.9 - 5.3 cm LV Systolic Diameter PLAX 2.6 cm IVS Diastolic Thickness 1.0 cm 0.6 - 1.0 / 0.6 - 0.9 cm LVPW Diastolic Thickness 1.2 cm 0.6 - 1.0 / 0.6 - 0.9 cm LV Relative Wall Thickness 0.7 RV Internal Dim ED PLAX 3.3 cm LA Systolic Diameter LX 2.9 cm 3.0 - 4.0 / 2.7 - 3.8 cm LV Diastolic Volume MOD BP 43.8 cm??? 67 - 155 / 56 - 104 cm??? LV Systolic Volume MOD BP 14.0 cm??? 22 - 58 / 19 - 49 cm??? LV Ejection Fraction MOD BP 68.0 % >= 55 % LV Cardiac Index MOD BP 1062.0 cm???/min???m??? LV Diastolic Volume MOD 4C 42.0 cm??? LV Systolic Volume MOD 4C 17.2 cm??? LV Ejection Fraction MOD 4C 59.1 % LV Cardiac Index MOD 4C 884.6 cm???/min???m??? LV Diastolic Length 4C 5.5 cm LV Systolic Length 4C 5.0 cm LV Diastolic Volume MOD 2C 44.0 cm??? LV Systolic Volume MOD 2C 11.5 cm??? LV Ejection Fraction MOD 2C 73.9 % LV Cardiac Index MOD 2C 1159.5 cm???/min???m??? LV Diastolic Length 2C 5.7 cm LV Systolic Length 2C 4.9 cm LA Volume 29.6 cm??? 18 - 58 / 22 - 52 cm??? LA Volume Index 17.3 cm???/m??? 16 - 28 cm???/m??? M-MODE Aortic Root Diameter MM 2.9 cm AV Cusp Separation MM 1.8 cm DOPPLER AV Peak Velocity 104.4 cm/s AV Peak Gradient 4.4 mmHg MV Area PHT 7.2 cm??? MV Deceleration Time 88.0 ms TR Peak Velocity 195.4 cm/s TR Peak Gradient 15.3 mmHg Right Ventricular Systolic Press 19.6 mmHg FINDINGS Left Ventricle Left ventricular ejection fraction is estimated at 55-60 %. Small left ventricular cavity. Left ventricular wall thickness normal. Right Ventricle Mild right ventricular dilatation. Right ventricular systolic pressure within normal limits. Right Atrium Normal right atrial size. No right atrial thrombus or mass seen. Left Atrium Normal left atrial size. No left atrial thrombus or mass present. Mitral Valve Structurally normal mitral valve. No evidence for mitral valve prolapse. No mitral stenosis. Trace mitral regurgitation. Aortic Valve Trileaflet aortic valve. No aortic valve stenosis or regurgitation. Tricuspid Valve Structurally normal tricuspid valve. Mild tricuspid regurgitation. Pulmonic Valve Pulmonic valve not well visualized. No pulmonic regurgitation. Pericardium No pericardial effusion. Aorta Normal size aortic root and proximal ascending aorta. CONCLUSIONS Reason for echo Atrial flutter with RVR Increased LV mass, small LV cavity Preserved LV systolic function Mild RV enlargement Previewed by: Dr. Tariq Cohen MD (Electronically Signed) Final Date: 04 Jul 2024 15:13
[2024-07-04 16:29] LABS: Glucose,Whole Blood 222 mg/dL (70-110)
[2024-07-04 20:11] LABS: Glucose,Whole Blood 199 mg/dL (70-110)
[2024-07-04] MEDS: INSULIN GLARGINE (LANTUS) 100 UNIT/ML SYR SQ SCH (20:31)
[2024-07-05 01:50] LABS: Chol/HDL Ratio 4.93 Ratio
[2024-07-05 06:20] LABS: Glucose,Whole Blood 179 mg/dL (70-110)
[2024-07-05 08:40] LABS: Basophils # (A) 0.03 10*3/uL (0.00-0.10); Basophils % (A) 0.6 %; Eosinophils % (A) 2.1 %; HCT 37.7 % (39.6-50.0); HGB 13.3 g/dL (13.0-17.0); Immature Platelet Fraction 1.7 % (1.1-6.1); Lymphocytes # (A) 1.47 10*3/uL (0.90-5.00); Lymphocytes % (A) 30.7 %; MCH 32.9 pg (27.0-32.0); MCHC 35.3 g/dL (32.0-37.0); MCV 93.3 fL (80.0-97.0); Mean Platelet Volume 9.4 fL (9.5-12.2); Monocytes # (A) 0.44 10*3/uL (0.20-1.00); Monocytes % (A) 9.2 %; Neutrophils # (A) 2.74 10*3/uL (1.80-7.70); Neutrophils % (A) 57.2 %; Platelet Count 132 10*3/uL (140-440); RBC 4.04 10*6/uL (4.40-5.60); RDW 11.7 % (11.5-14.5); WBC 4.79 10*3/uL (4.50-10.00)
--- NOTE | 2024-07-05 09:41 | P.PN ---
Subjective Progress Note Date: 07/05/24 This is Leon Knott NP, I'm dictating on behalf of Dr. Cohen's H&P and A&P. Patient was interviewed and examined. Patient is a pleasant 84-year-old male with a past medical history that includes atrial fibrillation, diabetes, and prostate cancer who presents to the hospital with complaints of weakness, lightheadedness, and dizziness, for "a number of days". Patient reports that his blood sugar was very elevated, over 500. He reported feeling occasional palpitations. Due to his concerning symptoms he arrived to the emergency department for evaluation. In the emergency department the patient was found to be in atrial flutter with a heart rate in the 120's. He was started on a diltiazem drip, which has controlled his heart rate. Cardiology was consulted due to the atrial flutter. 07/05/2024: Patient continues to remain in atrial flutter with a heart rate in the 120s. Yesterday diltiazem was discontinued and the patient was started on metoprolol 25 mg 3 times daily. This is happening between the doses of metoprolol. He is denying chest pain and shortness of breath. GENERAL: Well-appearing, well-nourished and in no acute distress. NECK: Supple without JVD or thyromegaly. LUNGS: Breath sounds clear to auscultation bilaterally. Respiration equal and unlabored. No wheezes, rales or rhonchi. HEART: Regular rate and rhythm without murmurs, rubs or gallops. S1 and S2 heard. EXTREMITIES: Normal range of motion, no edema. No clubbing or cyanosis. Peripheral pulses intact and strong. VITALS: Temp 97.3, yes 125, respirations 16, blood pressure 134/92, O2 saturation 96% on room air TELEMETRY: Atrial flutter, heart rate in the 120s LABS: White count 4.7, hemoglobin 13.3, platelets 132 IMPRESSION: 1. Atrial flutter/tachycardia, currently controlled 2. Type 2 diabetes 3. Anemia of unknown origin, patient had a 4 g drop in hemoglobin since admission. PLAN: Increase metoprolol to 50 mg 3 times daily. Continue to monitor telemetry. If heart rate does not improve, will consider MARTIN with cardioversion. Further recommendations based on patient's clinical course. Objective - Vital Signs Vital signs: Vital Signs Temp 97.3 F L 07/05/24 07:30 Pulse 125 H 07/05/24 07:30 Resp 16 07/05/24 07:30 BP 134/92 07/05/24 07:30 Pulse Ox 96 07/05/24 07:30 FiO2 Intake & Output 07/04/24 07/05/24 07/05/24 18:59 06:59 18:59 Intake Total 776.917 240 Balance 776.917 240 Weight 64 kg Intake: Intake, IV Titration 56.917 Amount Diltiazem 125 mg In 56.917 Dextrose 5% in Water 100 ml @ 5 MG/HR 5 mls/hr IV .Q24H [facility] Rx#:[id number] Oral 720 240 Other: Voiding Method Urinal Urinal # Voids 2 # Bowel Movements 1 - Labs CBC & Chem 7: 07/05/24 07:57 07/04/24 06:40 Labs: Abnormal Lab Results - Last 24 Hours (Table) 07/04/24 07/04/24 07/04/24 Range/Units 00:12 11:31 12:01 RBC 3.84 L (4.40-5.60) 10*6/uL Hct 36.1 L (39.6-50.0) % MCH 33.9 H (27.0-32.0) pg Plt Count 134 L (140-440) 10*3/uL MPV (9.5-12.2) fL POC Glucose (mg/dL) 295 H (70-110) mg/dL Triglycerides 564.00 H (0.00-149.00) mg/dL VLDL Cholesterol, Calc 112.80 H (5.00-40.00) mg/dL HDL Cholesterol 30.40 L (40.00-60.00) mg/dL 07/04/24 07/04/24 07/05/24 Range/Units 16:28 20:10 06:18 RBC (4.40-5.60) 10*6/uL Hct (39.6-50.0) % MCH (27.0-32.0) pg Plt Count (140-440) 10*3/uL MPV (9.5-12.2) fL POC Glucose (mg/dL) 222 H 199 H 179 H (70-110) mg/dL Triglycerides (0.00-149.00) mg/dL VLDL Cholesterol, Calc (5.00-40.00) mg/dL HDL Cholesterol (40.00-60.00) mg/dL 07/05/24 Range/Units 07:57 RBC 4.04 L (4.40-5.60) 10*6/uL Hct 37.7 L (39.6-50.0) % MCH 32.9 H (27.0-32.0) pg Plt Count 132 L (140-440) 10*3/uL MPV 9.4 L (9.5-12.2) fL POC Glucose (mg/dL) (70-110) mg/dL Triglycerides (0.00-149.00) mg/dL VLDL Cholesterol, Calc (5.00-40.00) mg/dL HDL Cholesterol (40.00-60.00) mg/dL
--- NOTE | 2024-07-05 10:58 | P.PN ---
Subjective Progress Note Date: 07/05/24 Hospital Course: An 84-year-old male with past medical history of poorly controlled type II DM not on insulin, atrial fibrillation, prostate cancer, who presented to the ER on 07/03/2024 with weakness, lightheadedness, lasting for several days. States that he was prompted to check his blood sugar and it was > 500. States that he takes metformin 500 mg twice daily, however endorses not maintaining a diabetic diet all the time. He denies fever, chills, cough, change in urination or bowel hab its. He notes having felt occasional chest palpitations earlier in the day. On arrival to the emergency room he was noted to be in atrial flutter on EKG. He notes that he had previously been told he was in atrial fibrillation and states that he had followed up with a testing shaking shipping, however at that time stated that he was no longer in atrial fibrillation and was not placed on any medications. Un derwent extensive workup and that showed normal WBC count, hemoglobin 16 point, creatinine 0.8, lactic acid 2.4, total bili 1.4, troponin 0.0 23, UA with glucosuria, EKG showed a flutter with RVR, BP was 96/62 on admission, SpO2 normal. She was admitted with cardiology on consult, was started on Cardizem drip and Eliquis, TTE ordered. TSH was normal. 07/04: Seen examined at bedside, no acute complaints, cardiology increased metoprolol to 25 mg 3 times daily, Cardizem drip was discontinued earlier this morning. Hemoglobin this morning 12.9, no blood in stool or urine reported, repeat hemoglobin stable at 13.0, likely hemodilution, patient received 3 L of IV fluids since admission. A1c 9.2, previously around 8. TTE preserved LV systolic function, increased LV mass and small LV cavity. 07/05: Seen and examined at bedside, feels better, heart rate goes up to 120s on telemetry, cardiology increase metoprolol to 50 mg 3 times daily, considering MARTIN. Of note, overnight patient had an episode when he got up from bed and felt dizzy and lightheaded, he was helped to the bed, will try compression socks before orthostatic hypotensio, discussed with RN and patient. Pertinent positives and negatives as discussed above, a complete review of systems was performed and all other systems are negative. Vitals Signs Reviewed. General: [nontoxic], [no distress], [appears at stated age] Derm: [warm], [dry] Head: [atraumatic], [normocephalic], [symmetric] Eyes: [EOMI], [no lid lag], [anicteric sclera] Mouth: [no lip lesion], [mucus membranes moist] Cardiovascular: [S1S2 reg, tachycardic], [no murmur] Lungs: [CTA bilateral], [no rhonchi, no rales] , [no accessory muscle use] Abdominal: [soft], [ nontender to palpation], [no guarding], [no appreciable organomegaly] Ext: [no gross muscle atrophy], [no edema], [no contractures] Neuro: [ CN II-XI grossly intact], [no focal neuro deficits] Psych: [Alert], [oriented], [appropriate affect] Assessment and Plan: Atrial flutter/tachycardia - Cardiology consulted, appreciate recommendations, metoprolol increased to 50 mg p.o. 3 times daily, possible MARTIN cardioversion - TTE as above - Continue telemetry - TSH normal Hemoglobin drop, likely hemodilution -Hemoglobin this morning 12.9>13.3, no blood in stool or urine reported, repeat hemoglobin stable at 13.0, likely hemodilution, patient received 3 L of IV fluids since admission, discussed with RN - CBC in the morning, ordered -Hemoccult pending Uncontrolled type II DM not on home insulin - A1c 9.4 - At basal bolus with Lantus 10, mealtime 3, continue SSI, Accu-Cheks, hypoglycemia precautions Pseudohyponatremia in the settings of hyperglycemia DVT ppx: Eliquis Code status: Full code Anticipated discharge place: Home Anticipated discharge time: tbd Objective - Vital Signs Vital signs: Vital Signs Temp 97.3 F L 07/05/24 07:30 Pulse 125 H 07/05/24 07:30 Resp 16 07/05/24 07:30 BP 134/92 07/05/24 07:30 Pulse Ox 96 07/05/24 07:30 FiO2 Intake & Output 07/04/24 07/05/24 07/05/24 18:59 06:59 18:59 Intake Total 776.917 240 Balance 776.917 240 Weight 64 kg Intake: Intake, IV Titration 56.917 Amount Diltiazem 125 mg In 56.917 Dextrose 5% in Water 100 ml @ 5 MG/HR 5 mls/hr IV .Q24H [facility] Rx#:[id number] Oral 720 240 Other: Voiding Method Urinal Urinal # Voids 2 # Bowel Movements 1 - Labs CBC & Chem 7: 07/05/24 07:57 07/04/24 06:40 Labs: Abnormal Lab Results - Last 24 Hours (Table) 07/04/24 07/04/24 07/04/24 Range/Units 00:12 11:31 12:01 RBC 3.84 L (4.40-5.60) 10*6/uL Hct 36.1 L (39.6-50.0) % MCH 33.9 H (27.0-32.0) pg Plt Count 134 L (140-440) 10*3/uL MPV (9.5-12.2) fL POC Glucose (mg/dL) 295 H (70-110) mg/dL Triglycerides 564.00 H (0.00-149.00) mg/dL VLDL Cholesterol, Calc 112.80 H (5.00-40.00) mg/dL HDL Cholesterol 30.40 L (40.00-60.00) mg/dL 07/04/24 07/04/24 07/05/24 Range/Units 16:28 20:10 06:18 RBC (4.40-5.60) 10*6/uL Hct (39.6-50.0) % MCH (27.0-32.0) pg Plt Count (140-440) 10*3/uL MPV (9.5-12.2) fL POC Glucose (mg/dL) 222 H 199 H 179 H (70-110) mg/dL Triglycerides (0.00-149.00) mg/dL VLDL Cholesterol, Calc (5.00-40.00) mg/dL HDL Cholesterol (40.00-60.00) mg/dL 07/05/24 Range/Units 07:57 RBC 4.04 L (4.40-5.60) 10*6/uL Hct 37.7 L (39.6-50.0) % MCH 32.9 H (27.0-32.0) pg Plt Count 132 L (140-440) 10*3/uL MPV 9.4 L (9.5-12.2) fL POC Glucose (mg/dL) (70-110) mg/dL Triglycerides (0.00-149.00) mg/dL VLDL Cholesterol, Calc (5.00-40.00) mg/dL HDL Cholesterol (40.00-60.00) mg/dL
[2024-07-05 11:38] LABS: Glucose,Whole Blood 182 mg/dL (70-110)
[2024-07-05 12:50] VITALS: BMI 23.4
[2024-07-05 16:27] LABS: Glucose,Whole Blood 222 mg/dL (70-110)
[2024-07-05] MEDS: METOPROLOL SUCCINATE (ER) 50 MG TAB.ER.24H PO SCH (17:02)
[2024-07-05 19:38] LABS: Glucose,Whole Blood 167 mg/dL (70-110)
[2024-07-06 06:02] LABS: Glucose,Whole Blood 134 mg/dL (70-110)
[2024-07-06 07:29] LABS: Basophils # (A) 0.05 10*3/uL (0.00-0.10); Eosinophils # (A) 0.13 10*3/uL (0.04-0.35); Eosinophils % (A) 2.5 %; HCT 38.1 % (39.6-50.0); HGB 13.4 g/dL (13.0-17.0); Lymphocytes # (A) 1.79 10*3/uL (0.90-5.00); MCHC 35.2 g/dL (32.0-37.0); MCV 93.8 fL (80.0-97.0); Mean Platelet Volume 9.9 fL (9.5-12.2); Monocytes # (A) 0.48 10*3/uL (0.20-1.00); Monocytes % (A) 9.1 %; Neutrophils % (A) 53.2 %; Platelet Count 141 10*3/uL (140-440); RBC 4.06 10*6/uL (4.40-5.60); RDW 11.7 % (11.5-14.5); WBC 5.26 10*3/uL (4.50-10.00)
--- NOTE | 2024-07-06 08:31 | P.PN ---
Subjective Progress Note Date: 07/06/24 This is Leon Knott NP, I'm dictating on behalf of Dr. Cohen's H&P and A&P. Patient was interviewed and examined. Patient is a pleasant 84-year-old male with a past medical history that includes atrial fibrillation, diabetes, and prostate cancer who presents to the hospital with complaints of weakness, lightheadedness, and dizziness, for "a number of days". Patient reports that his blood sugar was very elevated, over 500. He reported feeling occasional palpitations. Due to his concerning symptoms he arrived to the emergency department for evaluation. In the emergency department the patient was found to be in atrial flutter with a heart rate in the 120's. He was started on a diltiazem drip, which has controlled his heart rate. Cardiology was consulted due to the atrial flutter. 07/05/2024: Patient continues to remain in atrial flutter with a heart rate in the 120s. Yesterday diltiazem was discontinued and the patient was started on metoprolol 25 mg 3 times daily. This is happening between the doses of metoprolol. He is denying chest pain and shortness of breath. 07/06/2024: As of 0730 this morning the patient has converted to normal sinus rhythm. He is feeling okay today. He denies shortness of breath and chest pain. GENERAL: Well-appearing, well-nourished and in no acute distress. NECK: Supple without JVD or thyromegaly. LUNGS: Breath sounds clear to auscultation bilaterally. Respiration equal and unlabored. No wheezes, rales or rhonchi. HEART: Regular rate and rhythm without murmurs, rubs or gallops. S1 and S2 heard. EXTREMITIES: Normal range of motion, no edema. No clubbing or cyanosis. Peripheral pulses intact and strong. VITALS: Temp 97.7, pulse 96, respirations 17, blood pressure 122/81, O2 saturation 96% on room air TELEMETRY: Sinus mechanism LABS: White count 5.2, hemoglobin 13.4, platelets 141 IMPRESSION: 1. Atrial flutter/tachycardia, currently controlled 2. Type 2 diabetes 3. Anemia of unknown origin, patient had a 4 g drop in hemoglobin since admission. PLAN: Increase metoprolol to 75 mg 3 times daily. Patient may be discharged within the next 24 to 48 hours from a cardiology standpoint. Objective - Vital Signs Vital signs: Vital Signs Temp 97.7 F 07/06/24 03:50 Pulse 96 07/06/24 03:50 Resp 17 07/06/24 03:50 BP 122/81 07/06/24 03:50 Pulse Ox 96 07/06/24 03:50 FiO2 Intake & Output 07/05/24 07/06/24 07/06/24 18:59 06:59 18:59 Intake Total 960 Balance 960 Weight 64 kg 63 kg Intake: Oral 960 Other: Voiding Method Urinal Urinal - Labs CBC & Chem 7: 07/06/24 05:46 07/04/24 06:40 Labs: Abnormal Lab Results - Last 24 Hours (Table) 07/05/24 07/05/24 07/05/24 Range/Units 07:57 11:36 16:26 RBC 4.04 L (4.40-5.60) 10*6/uL Hct 37.7 L (39.6-50.0) % MCH 32.9 H (27.0-32.0) pg Plt Count 132 L (140-440) 10*3/uL MPV 9.4 L (9.5-12.2) fL POC Glucose (mg/dL) 182 H 222 H (70-110) mg/dL 07/05/24 07/06/24 07/06/24 Range/Units 19:37 05:46 06:00 RBC 4.06 L (4.40-5.60) 10*6/uL Hct 38.1 L (39.6-50.0) % MCH 33.0 H (27.0-32.0) pg Plt Count (140-440) 10*3/uL MPV (9.5-12.2) fL POC Glucose (mg/dL) 167 H 134 H (70-110) mg/dL
[2024-07-06] MEDS: METOPROLOL SUCCINATE (ER) 25 MG TAB.ER.24H PO SCH (08:42)
[2024-07-06 11:12] LABS: Glucose,Whole Blood 192 mg/dL (70-110)
[2024-07-06 16:41] LABS: Glucose,Whole Blood 180 mg/dL (70-110)
--- NOTE | 2024-07-06 16:57 | P.PN ---
Subjective Progress Note Date: 07/06/24 Patient was seen and examined. Feeling tired. Cardiology has increased Metoprolol to 75 mg PO TID. CBC significant for RBC 4.06, Hct 38.1. EKG shows NSR rate of 78. BP 119/75, HR 75, Tmax 97.5F, RR 16, 96% on RA. General: no distress, appears at stated age Derm: warm, dry Head: atraumatic, normocephalic, symmetric Mouth: no lip lesion, mucus membranes moist Cardiovascular: S1 S2 reg. No murmur. Lungs: Decreased BS bilaterally, no accessory muscle use Ext: no gross muscle atrophy, no edema, no contractures. Neuro: No focal neurologic deficits. Psych: Alert and oriented. Based on my assessment of this patient, this patient meets a high complexity level of care. Atrial flutter: Eliquis 5 mg PO BID for AC. Metoprolol 75 mg PO TID. Telemetry monitoring. Maintain K > 4 and Mg > 2. Possible discharge in the AM if HR remains stable. Cardiology on board. Diabetes mellitus with hyperglycemia: A1c 9.2. Lantus 10 units QHS + Lispro 4 units TID. ISS and Accuchecks ACHS along with hypoglycemic precautions. Resolved: Lactic acidosis. Hyponatremia CODE STATUS: FULL CODE DVT Prophylaxis: Eliquis. GI Prophylaxis: Designated medical POA if patient is not able to make medical decisions for themselves: I have reviewed the following funeral pre need consultant notes: Cardiology. I have reviewed the results of the following tests: CBC I have ordered the following tests: I have discussed the care of this patient with the following independent historian: WANDA. I have independently interpreted the following test below: EKG. I have discussed the management of this patient with the following physician: Objective - Vital Signs Vital signs: Vital Signs Temp 97.5 F L 07/06/24 16:00 Pulse 75 07/06/24 16:00 Resp 16 07/06/24 16:00 BP 119/67 07/06/24 16:00 Pulse Ox 96 07/06/24 16:00 FiO2 Intake & Output 07/05/24 07/06/24 07/06/24 18:59 06:59 18:59 Intake Total 960 440 Balance 960 440 Weight 64 kg 63 kg Intake: IV 20 Invasive Line 1 20 Oral 960 420 Other: Voiding Method Urinal Urinal Urinal # Voids 1 - Labs CBC & Chem 7: 07/06/24 05:46 07/04/24 06:40 Labs: Abnormal Lab Results - Last 24 Hours (Table) 07/05/24 07/06/24 07/06/24 Range/Units 19:37 05:46 06:00 RBC 4.06 L (4.40-5.60) 10*6/uL Hct 38.1 L (39.6-50.0) % MCH 33.0 H (27.0-32.0) pg POC Glucose (mg/dL) 167 H 134 H (70-110) mg/dL 07/06/24 07/06/24 Range/Units 11:11 16:39 RBC (4.40-5.60) 10*6/uL Hct (39.6-50.0) % MCH (27.0-32.0) pg POC Glucose (mg/dL) 192 H 180 H (70-110) mg/dL
[2024-07-06 21:00] LABS: Glucose,Whole Blood 192 mg/dL (70-110)
[2024-07-07 06:13] LABS: Glucose,Whole Blood 144 mg/dL (70-110)
[2024-07-07] MEDS: METOPROLOL SUCCINATE (ER) 50 MG TAB.ER.24H PO SCH (09:39)
[2024-07-07 11:36] VITALS: BP 152/84; PULSE 59; RESP 18; TEMP 97.3
--- NOTE | 2024-07-07 11:41 | P.PN ---
Subjective HISTORY OF PRESENT ILLNESS: Patient examined this morning at bedside. Patient has converted to sinus mechanism and is maintaining sinus mechanism at the time of examination. He is bradycardic with a heart rate in the 40s50s. Denies chest pain or shortness of breath. Denies dizziness or lightheadedness. PHYSICAL EXAM: VITAL SIGNS: Reviewed. GENERAL: Well-developed in no acute distress. NECK: Supple. No JVD or thyromegaly LUNGS: Respirations even and unlabored. Lungs essentially clear to auscultation bilaterally. HEART: Regular rate and rhythm. S1 and S2 heard. EXTREMITIES: Normal range of motion. No clubbing or cyanosis. Peripheral pulses intact. No lower extremity edema ASSESSMENT: New onset typical atrial flutter with RVR, currently maintaining sinus mechanism Sinus bradycardia Anemia of unknown origin Diabetes PLAN: Decrease metoprolol succinate to 50 mg twice a day Continue anticoagulation with Eliquis Patient is stable for discharge home today from a cardiac standpoint Patient to follow-up postdischarge in the office Nurse practitioner note has been reviewed by physician. Signing provider agrees with the documented findings, assessment, and plan of care documented by BULLDOZER/LOADER/COMPACTOR/SCRAPER as a scribe. Objective - Vital Signs Vital signs: Vital Signs Temp 97.3 F L 07/07/24 11:19 Pulse 59 L 07/07/24 11:19 Resp 18 07/07/24 11:19 BP 152/84 07/07/24 11:19 Pulse Ox 98 07/07/24 11:19 FiO2 Intake & Output 07/06/24 07/07/24 07/07/24 18:59 06:59 18:59 Intake Total 620 20 10 Balance 620 20 10 Weight 63.8 kg Intake: IV 20 20 10 Invasive Line 1 20 20 10 Oral 600 Other: Voiding Method Urinal Urinal Urinal # Voids 1 1 1 - Labs CBC & Chem 7: 07/06/24 05:46 07/04/24 06:40 Labs: Abnormal Lab Results - Last 24 Hours (Table) 07/06/24 07/06/24 07/07/24 Range/Units 16:39 20:59 06:12 POC Glucose (mg/dL) 180 H 192 H 144 H (70-110) mg/dL
[2024-07-07 11:45] LABS: Glucose,Whole Blood 237 mg/dL (70-110)
--- NOTE | 2024-07-07 11:50 | P.DS ---
Providers Date of admission: 07/03/24 20:50 Expected date of discharge: 07/07/24 Attending physician: Sylvain Tripathi MD Consults: 07/03/24 20:48 Consult Physician Routine Consulting Provider: Juan José Looney Consult Reason/Comments: New onset atrial flutter with rapid ventricular rate Do you want consulting provider notified?: Yes Primary care physician: Stated None Hospital Course: 84-year-old male with PMH of DM who presents emerged part send has been feeling weak, lightheaded and dizzy. States that he was prompted to check his blood sugar and it was > 500. He notes having felt occasional chest palpitations earlier in the day. On arrival to the emergency room he was noted to be in atrial flutter on EKG. Vital signs in the ED Blood pressure 95/62, heart rate 123, respiratory 18, SpO2 95% on room air. Labs significant for Na 131, Cl 94, BUN 21, glu 326, Lactic acid 3.4-1.9, T. Bili 1.4, Mag 1.6, Trop 0.023-0.024-0.029. Patient was started on Cardizem drip and admitted for Cardiology evaluation. Echo EF 55-60%. Eventually transitioned to Metoprolol and titrated. Also started on Levemir 10 units daily along with Lispro 4 units TID and ISS. 07/07 Patient was seen and examined. Feeling well. Patient was bradycardic this morning, Metoprolol dose decreased to 50 mg PO BID. Cleared by Cardiology for discharge. Discharge Plan: Metoprolol and Eliquis sent to pharmacy. Given glucometer by PCP. His A1c is 9.2. I am hesitant to start him on insulin at this time given his non compliance and feel like a second oral diabetic agent such as Farxiga would benefit the pat ient. Continue Lipitor and Metformin. Discontinue ASA and Lisinopril-HCTZ. Follow up with PCP within 1-[address] Cohen on 07/14. BP 152/84, HR 59, T97.3F, RR 18, 98% on RA. General: no distress, appears at stated age Derm: warm, dry Head: atraumatic, normocephalic, symmetric Mouth: no lip lesion, mucus membranes moist Cardiovascular: S1 S2 jelani. No murmur. Lungs: Decreased BS bilaterally, no accessory muscle use Ext: no gross muscle atrophy, no edema, no contractures. Neuro: No focal neurologic deficits. Psych: Alert and oriented. Discharge Diagnosis: Atrial flutter Diabetes mellitus with hyperglycemia Resolved: Lactic acidosis. Hyponatremia This complex discharge took 35 minutes to complete. Patient Condition at Discharge: Stable Plan - Discharge Summary Discharge Rx Participant: No New Discharge Prescriptions: New Apixaban [Eliquis] 5 mg PO BID #60 tab Dapagliflozin Propanediol [Farxiga] 5 mg PO DAILY #30 tab Metoprolol Succinate (ER) [Toprol XL] 50 mg PO BID #60 tab Continue Atorvastatin [Lipitor] 20 mg PO HS #30 tab metFORMIN HCL 500 mg PO BID #60 tab Discontinued Aspirin EC [Ecotrin Low Dose] 81 mg PO DAILY Lisinopril-Hctz 20-12.5 mg [Zestoretic 20-12.5] 1 tab PO DAILY Discharge Medication List Apixaban [Eliquis] 5 mg PO BID #60 tab 07/07/24 [Rx] Atorvastatin [Lipitor] 20 mg PO HS #30 tab 07/07/24 [Rx] Dapagliflozin Propanediol [Farxiga] 5 mg PO DAILY #30 tab 07/07/24 [Rx] Metoprolol Succinate (ER) [Toprol XL] 50 mg PO BID #60 tab 07/07/24 [Rx] metFORMIN HCL 500 mg PO BID #60 tab 07/07/24 [Rx] Follow up Appointment(s)/Referral(s): Tariq Cohen MD [STAFF PHYSICIAN] - 1 Week Kira Cristina MD [STAFF PHYSICIAN] - 1-2 Days [facility] [NON-STAFF] - (Can help with house keeping and other services) Activity/Diet/Wound Care/Special Instructions: Diet: Diabetic Discharge/Stand Alone Forms: Who Do I Call? Discharge Disposition: HOME SELF-CARE
[2024-07-07] MEDS ORDERED: METOPROLOL SUCCINATE (ER) 25 MG TAB.ER.24H PO SCH (21:00)
== END 2024-07-07 13:43 | disposition home or self-care (01) | DRG 309 ==
LOC: EC 16:40 → 3SCARD 20:50
PROVIDERS: ADMIT Internal Medicine; ATTEND Internal Medicine
PROC: 3E033RZ Introduction of Antiarrhythmic into Peripheral Vein, Percutaneous Approach (ICD-10-PCS; principal; 2024-07-03)
DX: I48.3 Typical atrial flutter (principal); E87.20 Acidosis, unspecified; E11.65 Type 2 diabetes mellitus with hyperglycemia; R00.0 Tachycardia, unspecified; D64.9 Anemia, unspecified; R42 Dizziness and giddiness; R00.1 Bradycardia, unspecified; I48.91 Unspecified atrial fibrillation; Z79.4 Long term (current) use of insulin; Z91.148 Patient's other noncompliance with medication regimen for other reason; Z79.84 Long term (current) use of oral hypoglycemic drugs; Z79.01 Long term (current) use of anticoagulants; Z79.899 Other long term (current) drug therapy; Z85.46 Personal history of malignant neoplasm of prostate
CPT/HCPCS: 36415; 80048; 80053; 80061; 81003; 82009; 83036; 83605; 83721; 83735; 84443; 84484; 85025; 85027; 93005; 93306; 96361; 96374; 99285

== ENCOUNTER 2024-07-25 16:14 | Observation (INO) | payer MEDICARE ==
--- NOTE | 2024-07-25 16:23 | ED ---
Dizziness HPI - General Stated Complaint: dizziness Time Seen by Provider: 07/25/24 16:21 Source: RN notes reviewed Mode of arrival: EMS Limitations: altered mental status - History of Present Illness Initial Comments: This is an 84-year-old male to ER for evaluation of weakness significant weakness here in the emergency department altered mental status at times but mainly weakness nausea no vomiting palpitations concern for dehydration decreased appetite. MD Complaint: dizziness, lightheadedness, near syncope Timing: constant Description: lightheadedness History of Same: Yes History of Trauma: Yes Severity: moderate Worsens With: nothing Associated Symptoms: denies other symptoms - Related Data Previous Rx's Medication Instructions Recorded Apixaban [Eliquis] 5 mg PO BID #60 tab 07/07/24 Atorvastatin [Lipitor] 20 mg PO HS #30 tab 07/07/24 Dapagliflozin Propanediol [Farxiga] 5 mg PO DAILY #30 tab 07/07/24 Metoprolol Succinate (ER) [Toprol 50 mg PO BID #60 tab 07/07/24 XL] metFORMIN HCL 500 mg PO BID #60 tab 07/07/24 Allergies Allergy/AdvReac Type Severity Reaction Status Date / Time No Known Allergies Allergy Verified 07/26/24 09:36 Review of Systems ROS Statement: Those systems with pertinent positive or pertinent negative responses have been documented in the HPI. ROS Other: All systems not noted in ROS Statement are negative. Past Medical History Past Medical History: Atrial Fibrillation, Diabetes Mellitus Additional Past Medical History / Comment(s): prostate cx History of Any Multi-Drug Resistant Organisms: None Reported Additional Past Surgical History / Comment(s): prostate Past Anesthesia/Blood Transfusion Reactions: Unable to Obtain Past Psychological History: No Psychological Hx Reported Smoking Status: Never smoker Past Alcohol Use History: None Reported Past Drug Use History: None Reported General Exam General appearance: alert, in no apparent distress Head exam: Present: atraumatic, normocephalic, normal inspection Eye exam: Present: normal appearance, PERRL, EOMI. Absent: scleral icterus, conjunctival injection, periorbital swelling ENT exam: Present: normal exam, mucous membranes moist Neck exam: Present: normal inspection. Absent: tenderness, meningismus, lymphadenopathy Respiratory exam: Present: normal lung sounds bilaterally. Absent: respiratory distress, wheezes, rales, rhonchi, stridor Cardiovascular Exam: Present: bradycardia, irregular rhythm, normal heart sounds. Absent: systolic murmur, diastolic murmur, rubs, gallop, clicks GI/Abdominal exam: Present: soft, normal bowel sounds. Absent: distended, tenderness, guarding, rebound, rigid Extremities exam: Present: normal inspection, full ROM, normal capillary refill. Absent: tenderness, pedal edema, joint swelling, calf tenderness Back exam: Present: normal inspection Neurological exam: Present: alert, oriented X3, CN II-XII intact Psychiatric exam: Present: normal affect, normal mood Skin exam: Present: warm, dry, intact, normal color. Absent: rash Course Vital Signs 07/25/24 07/25/24 07/26/24 16:20 20:21 00:05 Temperature 98.1 F 98.0 F Pulse Rate 61 80 64 Respiratory 18 18 19 Rate Blood Pressure 115/68 106/65 123/81 O2 Sat by Pulse 96 95 97 Oximetry 07/26/24 07/26/24 07/26/24 06:21 08:24 14:30 Temperature 97.8 F 97.7 F Pulse Rate 78 124 H 73 Respiratory 18 20 18 Rate Blood Pressure 114/74 135/80 O2 Sat by Pulse 94 L 97 97 Oximetry 07/26/24 15:10 Temperature 98.3 F Pulse Rate Respiratory Rate Blood Pressure O2 Sat by Pulse Oximetry - Reevaluation(s) Reevaluation #1: 07/25/24 19:42 Medical records reviewed Reevaluation #2: 07/25/24 19:42 No significant change in symptoms here in the ER Reevaluation #3: 07/25/24 19:43 Patient informed of results and questions answered Reevaluation #4: Was pt. sent in by a medical professional or institution (, PA, STAFFING COORDINATOR, urgent care, hospital, or group home...) When possible be specific @ -no Did you speak to anyone other than the patient for history (EMS, parent, family, police, friend...)? What history was obtained from this source @ -no Did you review nursing and triage notes (agree or disagree)? Why? @ -agree Are old charts reviewed (outside hosp., previous admission, EMS record, old EKG, old radiological studies, urgent care reports/EKG's, group home records)? Report findings @ -yes Differential Diagnosis (chest pain, altered mental status, abdominal pain women, abdominal pain men, vaginal bleeding, weakness, fever, dyspnea, syncope, headache, dizziness, GI bleed, back pain, seizure, CVA, palpatations, mental health, musculoskeletal)? @ -prior EKG interpreted by me (3pts min.). @ -yes X-rays interpreted by me (1pt min.). @ -no CT interpreted by me (1pt min.). @ -no U/S interpreted by me (1pt. min.). @ -no What testing was considered but not performed or refused? (CT, X-rays, U/S, labs)? Why? @ -none What meds were considered but not given or refused? Why? @ -none Did you discuss the management of the patient with other professionals (professionals i.e. , PA, STAFFING COORDINATOR, lab, RT, psych nurse, social service assistant, plaster helper, teacher, mounted police officer, spring encaser)? Give summary @ -no Was smoking cessation discussed for >3mins.? @ -no Was critical care preformed (if so, how long)? @ -no Were there social determinants of health that impacted care today? How? (Homelessness, low income, unemployed, alcoholism, drug addiction, transportation, low edu. Level, literacy, decrease access to med. care, alf, rehab)? @ -none Was there de-escalation of care discussed even if they declined (Discuss DNR or withdrawal of care, Hospice)? DNR status @ -no What co-morbidities impacted this encounter? (DM, HTN, Smoking, COPD, CAD, Cancer, CVA, ARF, Chemo, Hep., AIDS, mental health diagnosis, sleep apnea, morbid obesity)? @ -none Was patient admitted / discharged? Hospital course, mention meds given and route, prescriptions, significant lab abnormalities, going to OR and other pertinent info. @ - 84 male to ER for dizziness significant atrial fibrillation persist here in the ER patient will admit for cardiac observation weakness Admitted Undiagnosed new problem with uncertain prognosis? @ -no Drug Therapy requiring intensive monitoring for toxicity (Heparin, Nitro, Insulin, Cardizem)? @ -no Were any procedures done? @ -no Diagnosis/symptom? @ -Weakness dizziness and persistent atrial fibrillation Acute, or Chronic, or Acute on Chronic? @ -Acute Uncomplicated (without systemic symptoms) or Complicated (systemic symptoms)? @ -Complicated Side effects of treatment? @ -no Exacerbation, Progression, or Severe Exacerbation? @ -exacerbation Poses a threat to life or bodily function? How? (Chest pain, USA, [place], pneumonia, PE, COPD, DKA, ARF, appy, cholecystitis, CVA, Diverticulitis, Homicidal, Suicidal, threat to staff... and all critical care pts) @ -yes extremes of age Reevaluation #5: Differential Dizziness: Benign paroxysmal positional Vertigo, Meniere's disease, otitis media, acoustic neuroma, vertebrobasilar insufficiency, cerebellar stroke, encephalitis, hypovolemic, arrhythmia, coronary artery syndrome, anemia, this is not meant to be an all-inclusive list Differential Palpitations Ventricular arrhythmias, atrial arrhythmias, myocardial infarction, anemia, thyrotoxicosis, electrolyte imbalance, hypokalemia, pulmonary embolism, pulmonary disease, drugs, alcohol, anxiety, stress.... This is not meant to be an all-inclusive list. - Consultations Consultation #1: Spoke with Dr. Galicia who agrees to admit this patient EKG Findings - EKG Comments: EKG Findings:: EKG is a flutter 60 QRS 100 QTc 435 - EKG Results: EKG shows: atrial fibrillation Medical Decision Making - Medical Decision Making 84 male to ER for dizziness significant atrial fibrillation persist here in the ER patient will admit for cardiac observation weakness - Lab Data Result diagrams: 07/27/24 05:11 07/27/24 05:11 Lab Results 07/25/24 07/25/24 07/25/24 Range/Units 16:33 16:33 16:33 WBC 5.16 (4.50-10.00) 10*3/uL RBC 4.61 (4.40-5.60) 10*6/uL Hgb 15.3 (13.0-17.0) g/dL Hct 43.6 (39.6-50.0) % MCV 94.6 (80.0-97.0) fL MCH 33.2 H (27.0-32.0) pg MCHC 35.1 (32.0-37.0) g/dL Plt Count 152 (140-440) 10*3/uL MPV 9.4 L (9.5-12.2) fL Immature Gran % (Auto) 0.2 % Neutrophils % 60.4 % Lymphocytes % 27.3 % Monocytes % 10.5 % Eosinophils % 1.2 % Basophils % 0.4 % Immature Gran # 0.01 (0.00-0.04) 10*3/uL Neutrophils # 3.12 (1.80-7.70) 10*3/uL Lymphocytes # 1.41 (0.90-5.00) 10*3/uL Monocytes # 0.54 (0.20-1.00) 10*3/uL Eosinophils # 0.06 (0.04-0.35) 10*3/uL Basophils # 0.02 (0.00-0.10) 10*3/uL PT 12.9 H (10.0-12.5) sec INR 1.2 H (<1.2) APTT 24.4 (22.0-30.0) sec Sodium 136 L (137-145) mmol/L Potassium 4.3 (3.5-5.1) mmol/L Chloride 102 (98-107) mmol/L Carbon Dioxide 23 (22-30) mmol/L Anion Gap 11 mmol/L BUN 20 (9-20) mg/dL Creatinine 0.78 (0.66-1.25) mg/dL Est GFR (CKD-EPI)AfAm >90 (>60 ml/min/1.73 sqM) Est GFR (CKD-EPI)NonAf 83 (>60 ml/min/1.73 sqM) Glucose 150 H (74-99) mg/dL POC Glucose (mg/dL) (70-110) mg/dL POC Glu Consumer Safety Inspector ID Plasma Lactic Acid Boris (0.7-2.0) mmol/L Calcium 9.0 (8.4-10.2) mg/dL Phosphorus 4.2 (2.5-4.5) mg/dL Magnesium 1.9 (1.6-2.3) mg/dL Total Bilirubin 1.1 (0.2-1.3) mg/dL AST 22 (17-59) U/L ALT 22 (4-49) U/L Alkaline Phosphatase 40 (38-126) U/L Troponin I (0.000-0.034) ng/mL NT-Pro-B Natriuret Pep 2500 pg/mL Total Protein 6.8 (6.3-8.2) g/dL Albumin 4.2 (3.5-5.0) g/dL TSH 1.290 (0.465-4.680) mIU/L 07/25/24 07/25/24 07/25/24 Range/Units 16:33 16:33 16:47 WBC (4.50-10.00) 10*3/uL RBC (4.40-5.60) 10*6/uL Hgb (13.0-17.0) g/dL Hct (39.6-50.0) % MCV (80.0-97.0) fL MCH (27.0-32.0) pg MCHC (32.0-37.0) g/dL Plt Count (140-440) 10*3/uL MPV (9.5-12.2) fL Immature Gran % (Auto) % Neutrophils % % Lymphocytes % % Monocytes % % Eosinophils % % Basophils % % Immature Gran # (0.00-0.04) 10*3/uL Neutrophils # (1.80-7.70) 10*3/uL Lymphocytes # (0.90-5.00) 10*3/uL Monocytes # (0.20-1.00) 10*3/uL Eosinophils # (0.04-0.35) 10*3/uL Basophils # (0.00-0.10) 10*3/uL PT (10.0-12.5) sec INR (<1.2) APTT (22.0-30.0) sec Sodium (137-145) mmol/L Potassium (3.5-5.1) mmol/L Chloride (98-107) mmol/L Carbon Dioxide (22-30) mmol/L Anion Gap mmol/L BUN (9-20) mg/dL Creatinine (0.66-1.25) mg/dL Est GFR (CKD-EPI)AfAm (>60 ml/min/1.73 sqM) Est GFR (CKD-EPI)NonAf (>60 ml/min/1.73 sqM) Glucose (74-99) mg/dL POC Glucose (mg/dL) 150 H (70-110) mg/dL POC Glu Consumer Safety Inspector ID Yasmeen Frey Plasma Lactic Acid Boris 1.5 (0.7-2.0) mmol/L Calcium (8.4-10.2) mg/dL Phosphorus (2.5-4.5) mg/dL Magnesium (1.6-2.3) mg/dL Total Bilirubin (0.2-1.3) mg/dL AST (17-59) U/L ALT (4-49) U/L Alkaline Phosphatase (38-126) U/L Troponin I 0.014 (0.000-0.034) ng/mL NT-Pro-B Natriuret Pep pg/mL Total Protein (6.3-8.2) g/dL Albumin (3.5-5.0) g/dL TSH (0.465-4.680) mIU/L Disposition Clinical Impression: Dehydration, Altered mental status, Dizziness, Weakness, Atrial fibrillation Disposition: ADMITTED IP TO THIS HOSP Condition: Stable Is patient prescribed a controlled substance at d/c from ED?: No Time of Disposition: 20:00
[2024-07-25 16:43] LABS: Basophils # (A) 0.02 10*3/uL (0.00-0.10); Basophils % (A) 0.4 %; Eosinophils # (A) 0.06 10*3/uL (0.04-0.35); Eosinophils % (A) 1.2 %; HCT 43.6 % (39.6-50.0); HGB 15.3 g/dL (13.0-17.0); Lymphocytes # (A) 1.41 10*3/uL (0.90-5.00); Lymphocytes % (A) 27.3 %; MCH 33.2 pg (27.0-32.0); MCHC 35.1 g/dL (32.0-37.0); MCV 94.6 fL (80.0-97.0); Mean Platelet Volume 9.4 fL (9.5-12.2); Monocytes # (A) 0.54 10*3/uL (0.20-1.00); Monocytes % (A) 10.5 %; Neutrophils # (A) 3.12 10*3/uL (1.80-7.70); Neutrophils % (A) 60.4 %; Platelet Count 152 10*3/uL (140-440); RBC 4.61 10*6/uL (4.40-5.60); RDW 12.2 % (11.5-14.5); WBC 5.16 10*3/uL (4.50-10.00)
[2024-07-25] MEDS: SODIUM CHLORIDE 0.9% 1,000 ML IV ONE (16:46)
[2024-07-25 16:48] LABS: Glucose,Whole Blood 150 mg/dL (70-110)
[2024-07-25 16:52] LABS: INR 1.2 (<1.2); Partial Thromboplastin Time 24.4 sec (22.0-30.0); Prothrombin Time 12.9 sec (10.0-12.5)
[2024-07-25 16:54] LABS: ALT 22 U/L (4-49); AST 22 U/L (17-59); African American GFR (CKD) >90 (>60 ml/min/1.73 sqM); Albumin 4.2 g/dL (3.5-5.0); Alkaline Phosphatase 40 U/L (38-126); Anion Gap 11 mmol/L; Blood Urea Nitrogen 20 mg/dL (9-20); Carbon Dioxide 23 mmol/L (22-30); Chloride 102 mmol/L (98-107); Glucose 150 mg/dL (74-99); Magnesium 1.9 mg/dL (1.6-2.3); Non-African American GFR(CKD) 83 (>60 ml/min/1.73 sqM); Phosphorus 4.2 mg/dL (2.5-4.5); Potassium 4.3 mmol/L (3.5-5.1); Sodium 136 mmol/L (137-145); Total Bilirubin 1.1 mg/dL (0.2-1.3); Total Protein 6.8 g/dL (6.3-8.2)
[2024-07-25 17:02] LABS: NT-Pro-B-Type Natriuretic Pept 2500 pg/mL
[2024-07-25] MEDS ORDERED: NALOXONE 0.4 MG/ML 1 ML VIAL IV PRN (19:40)
[2024-07-25] MEDS ORDERED: ONDANSETRON 4 MG/2 ML VIAL IVP PRN (19:40)
[2024-07-26] MEDS: SODIUM CHLORIDE 0.9% 1,000 ML IV SCH (00:04)
[2024-07-26] MEDS: MELATONIN 3 MG TABLET PO SCH (00:04)
[2024-07-26 01:23] LABS: Basophils # (A) 0.03 10*3/uL (0.00-0.10); Basophils % (A) 0.6 %; Eosinophils # (A) 0.12 10*3/uL (0.04-0.35); Eosinophils % (A) 2.4 %; HCT 39.2 % (39.6-50.0); HGB 14.1 g/dL (13.0-17.0); Lymphocytes # (A) 1.61 10*3/uL (0.90-5.00); Lymphocytes % (A) 32.1 %; MCH 34.1 pg (27.0-32.0); MCV 94.9 fL (80.0-97.0); Mean Platelet Volume 9.4 fL (9.5-12.2); Monocytes # (A) 0.48 10*3/uL (0.20-1.00); Monocytes % (A) 9.6 %; Neutrophils # (A) 2.77 10*3/uL (1.80-7.70); Neutrophils % (A) 55.1 %; Platelet Count 133 10*3/uL (140-440); RBC 4.13 10*6/uL (4.40-5.60); RDW 12.4 % (11.5-14.5); WBC 5.02 10*3/uL (4.50-10.00)
[2024-07-26 01:29] LABS: ALT 21 U/L (4-49); AST 22 U/L (17-59); African American GFR (CKD) >90 (>60 ml/min/1.73 sqM); Albumin 3.7 g/dL (3.5-5.0); Albumin/Globulin Ratio 1.4; Alkaline Phosphatase 44 U/L (38-126); Anion Gap 9 mmol/L; Blood Urea Nitrogen 20 mg/dL (9-20); Calcium 8.7 mg/dL (8.4-10.2); Carbon Dioxide 20 mmol/L (22-30); Chloride 106 mmol/L (98-107); Globulin 2.6 g/dL; Glucose 110 mg/dL (74-99); Magnesium 1.9 mg/dL (1.6-2.3); Non-African American GFR(CKD) 87 (>60 ml/min/1.73 sqM); Phosphorus 4.1 mg/dL (2.5-4.5); Potassium 3.7 mmol/L (3.5-5.1); Sodium 135 mmol/L (137-145); Total Bilirubin 0.7 mg/dL (0.2-1.3); Total Protein 6.3 g/dL (6.3-8.2)
[2024-07-26 08:02] LABS: Glucose,Whole Blood 136 mg/dL (70-110)
[2024-07-26] MEDS: metFORMIN 500 MG TAB PO SCH (08:22)
[2024-07-26] MEDS: APIXABAN 5 MG TAB PO SCH (08:22)
[2024-07-26] MEDS: DAPAGLIFLOZIN PROPANEDIOL 5 MG TABLET PO SCH (08:22)
[2024-07-26] MEDS: METOPROLOL SUCCINATE (ER) 50 MG TAB.ER.24H PO SCH (08:22)
--- NOTE | 2024-07-26 10:01 | P.HPIM ---
History of Present Illness H&P Date: 07/26/24 Erlin Jameson is an 84-year-old male patient of Dr. Chou who presented with concerns of weakness and dizziness. Patient reports this has been going on for couple days. Patient has a past medical history of atrial fibrillation in which she is maintained on Eliquis, diabetes mellitus. Current vital signs temp 97.8, heart rate 78, respiratory rate 18, blood pressure 114/74 with pulse ox of 97% on room air 2D echo completed showing atrial flutter with a heart rate of 60. Lab work completed showing white blood cell 5.02, hemoglobin 14.1, creatinine 0.71, bun 20 troponins negative. At this time patient has been resumed back on his Eliquis. Patient denies chest pain or shortness of breath. Patient denies nausea vomiting or diarrhea. Patient denies any urinary burning or frequency cardiology services will be consulted will order 2D echo and carotid Doppler and repeat labs in a.m. Review of Systems Please refer to HPI otherwise unremarkable Past Medical History Past Medical History: Atrial Fibrillation, Diabetes Mellitus Additional Past Medical History / Comment(s): prostate cx History of Any Multi-Drug Resistant Organisms: None Reported Additional Past Surgical History / Comment(s): prostate Past Anesthesia/Blood Transfusion Reactions: Unable to Obtain Past Psychological History: No Psychological Hx Reported Smoking Status: Never smoker Past Alcohol Use History: None Reported Past Drug Use History: None Reported Medications and Allergies Home Medications Medication Instructions Recorded Confirmed Type Apixaban [Eliquis] 5 mg PO BID #60 tab 07/07/24 07/25/24 Rx Atorvastatin [Lipitor] 20 mg PO HS #30 tab 07/07/24 07/25/24 Rx Dapagliflozin Propanediol [Farxiga] 5 mg PO DAILY #30 tab 07/07/24 07/25/24 Rx Metoprolol Succinate (ER) [Toprol 50 mg PO BID #60 tab 07/07/24 07/25/24 Rx XL] metFORMIN HCL 500 mg PO BID #60 tab 07/07/24 07/25/24 Rx Allergies Allergy/AdvReac Type Severity Reaction Status Date / Time No Known Allergies Allergy Verified 07/26/24 09:36 Physical Exam Vitals: Vital Signs Temp Pulse Resp BP Pulse Ox 07/26/24 08:24 97.7 F 124 H 20 97 07/26/24 06:21 97.8 F 78 18 114/74 94 L 07/26/24 00:05 64 19 123/81 97 07/25/24 20:21 98.0 F 80 18 106/65 95 07/25/24 16:20 98.1 F 61 18 115/68 96 Intake and Output 07/25/24 07/26/24 07/26/24 22:59 06:59 14:59 Other: Weight 65.227 kg Head normocephalic Neck supple Lungs clear to auscultation bilaterally no wheezing or crackles Heart irregular rate known atrial fibrillation Abdomen is soft nontender nondistended positive bowel sounds no hepatosplenomegaly Extremities no edema Neuro alert and orientated to 3 Results CBC & Chem 7: 07/26/24 01:00 07/26/24 01:00 Labs: Abnormal Lab Results - Last 24 Hours (Table) 07/25/24 07/25/24 07/25/24 Range/Units 16:33 16:33 16:33 RBC (4.40-5.60) 10*6/uL Hct (39.6-50.0) % MCH 33.2 H (27.0-32.0) pg Plt Count (140-440) 10*3/uL MPV 9.4 L (9.5-12.2) fL PT 12.9 H (10.0-12.5) sec INR 1.2 H (<1.2) Sodium 136 L (137-145) mmol/L Carbon Dioxide (22-30) mmol/L Glucose 150 H (74-99) mg/dL POC Glucose (mg/dL) (70-110) mg/dL 07/25/24 07/26/24 07/26/24 Range/Units 16:47 01:00 01:00 RBC 4.13 L (4.40-5.60) 10*6/uL Hct 39.2 L (39.6-50.0) % MCH 34.1 H (27.0-32.0) pg Plt Count 133 L (140-440) 10*3/uL MPV 9.4 L (9.5-12.2) fL PT (10.0-12.5) sec INR (<1.2) Sodium 135 L (137-145) mmol/L Carbon Dioxide 20 L (22-30) mmol/L Glucose 110 H (74-99) mg/dL POC Glucose (mg/dL) 150 H (70-110) mg/dL 07/26/24 Range/Units 08:00 RBC (4.40-5.60) 10*6/uL Hct (39.6-50.0) % MCH (27.0-32.0) pg Plt Count (140-440) 10*3/uL MPV (9.5-12.2) fL PT (10.0-12.5) sec INR (<1.2) Sodium (137-145) mmol/L Carbon Dioxide (22-30) mmol/L Glucose (74-99) mg/dL POC Glucose (mg/dL) 136 H (70-110) mg/dL Assessment and Plan Assessment: 1. Increased dizziness and weakness 2. Atrial fibrillation patient does have a history of resumed back on Eliquis 3. History of diabetes mellitus 4. History of prostate cancer DVT prophylaxis Eliquis. GI prophylax Protonix Cardiology services consulted 2D echo carotid Doppler and chest x-ray ordered Repeat labs in a.m. Time with Patient: Greater than 30 (Greater than 60% of the total time spent in counseling and coordination of care)
--- NOTE | 2024-07-26 11:11 | XR ---
EXAMINATION TYPE: XR chest 2V DATE OF EXAM: 07/26/2024 10:42 AM COMPARISON: None CLINICAL INDICATION: Male, 84 years old with history of dizziness, sob; [facility] TECHNIQUE: XR chest 2V Frontal and lateral views of the chest. FINDINGS: Lungs/Pleura: There is flattening of the diaphragm with increased lucency of the lungs. No evidence o f pneumothorax, pleural effusion or focal consolidation. Pulmonary vascularity: Unremarkable. Heart/mediastinum: Cardiomediastinal silhouette is unremarkable. Musculoskeletal: No acute osseous pathology. Other findings: None IMPRESSION: 1. No acute cardiopulmonary disease process. 2. COPD changes. [facility], , 07/26/2024 11:09 AM
--- NOTE | 2024-07-26 11:25 | P.CRDCN ---
History of Present Illness Consult date: 07/26/24 Consult reason: atrial fibrillation History of present illness: This is an 84-year-old male patient of Dr. Win with past medical history of frequent PVCs, atypical chest pain, hypertension, dyslipidemia, diabetes mellitus type 2 with A1c of 9.2. We have been asked to evaluate the patient for atrial fibrillation. Patient states that he came into the hospital because he had some weakness and dizziness. He denies chest pain. He states his balance was off. He states it all started yesterday and his daughter got contacted EMS and brought him into the hospital. He is feeling better at this time and states he had a good bowel movement this morning which helped and the shakiness is improved. Blood pressure 114/74, heart rate 124, pulse ox 97% on room air. Patient is seen today in the emergency center waiting for a bed on the cardiac stepdown unit. -EKG: Atrial flutter 60 bpm -Laboratory studies: Troponin negative x 4. proBNP 2500. TSH 1.29. Liver function test are normal. WBC 5, hemoglobin 14, sodium 135, potassium 3.7, crea tinine 0.71. -Home cardiac medications: Eliquis 5 mg twice daily, atorvastatin 20 mg at bedtime, Farxiga 5 mg daily, metoprolol succinate 50 mg twice daily. -Echocardiogram performed 06/2024 at [facility] revealed preserved LVEF, mild LVH, mild RV dilatation. -Lexiscan Cardiolite stress test performed in the office 03/14/2023 was overall normal Lexiscan myocardial perfusion stress test. Normal LV systolic function. Normal hemodynamic and EKG response to Lexiscan infusion. Mild dizziness and nausea with Lexiscan which resolved with aminophylline. -Event monitor 12/13/2022 - 12/17/2022 revealed primary rhythm sinus average heart rate of 75 with minimum 55 and maximum 149. 2 pauses of 2 seconds. Less than 1% PAC burden. PVC burden 4.38. Review Of Systems: At the time of my exam: CONSTITUTIONAL: Denies fever or chills. HEENT: Denies blurred vision, vision changes, or eye pain. Denies hemoptysis CARDIOVASCULAR: Denies chest pain. Denies orthopnea. Denies PND. Denies palp itations RESPIRATORY: Denies shortness of breath. GASTROINTESTINAL: Denies abdominal pain. Denies nausea or vomiting. HEMATOLOGIC: Denies bleeding disorders. GENITOURINARY: Denies any blood in urine. SKIN: Denies puritis. Denies rash. Physical examination: Gen: This is an 84-year-old male in no acute distress. VS: reviewed HEENT: Head is atraumatic, normocephalic. Pupils equal, round. Sclerae is anicteric. NECK: Supple. No JVD. LUNGS: Clear to auscultation. No wheezes or rhonchi. No intercostal retractions. HEART: Regular rate and rhythm. No murmur. ABDOMEN: Soft No tenderness. EXTREMITIES: No pedal edema. No calf tenderness. NEUROLOGICAL: Patient is awake, alert and oriented x3. Assessment: Generalized weakness Altered mental status Typical atrial flutter History of frequent PVCs Hypertension Dyslipidemia Diabetes mellitus type 2 with A1c 9.2. Plan: Resume patient's home cardiac medications No adjustment made to metoprolol today Continue telemetry monitoring No need to repeat echocardiogram as this was done in June Patient is cleared for discharge from cardiology perspective. Patient will follow-up with Dr. Win for outpatient cardioversion. Thank you kindly for this consultation. Nurse practitioner note has been reviewed, I agree with documented findings and plan of care. Patient was seen and examined. Past Medical History Past Medical History: Atrial Fibrillation, Diabetes Mellitus Additional Past Medical History / Comment(s): prostate cx History of Any Multi-Drug Resistant Organisms: None Reported Additional Past Surgical History / Comment(s): prostate Past Anesthesia/Blood Transfusion Reactions: Unable to Obtain Past Psychological History: No Psychological Hx Reported Smoking Status: Never smoker Past Alcohol Use History: None Reported Past Drug Use History: None Reported Medications and Allergies Home Medications Medication Instructions Recorded Confirmed Type Apixaban [Eliquis] 5 mg PO BID #60 tab 07/07/24 07/25/24 Rx Atorvastatin [Lipitor] 20 mg PO HS #30 tab 07/07/24 07/25/24 Rx Dapagliflozin Propanediol [Farxiga] 5 mg PO DAILY #30 tab 07/07/24 07/25/24 Rx Metoprolol Succinate (ER) [Toprol 50 mg PO BID #60 tab 07/07/24 07/25/24 Rx XL] metFORMIN HCL 500 mg PO BID #60 tab 07/07/24 07/25/24 Rx Allergies Allergy/AdvReac Type Severity Reaction Status Date / Time No Known Allergies Allergy Verified 07/26/24 09:36 Physical Exam Vitals: Vital Signs Temp Pulse Resp BP Pulse Ox 07/26/24 08:24 97.7 F 124 H 20 97 07/26/24 06:21 97.8 F 78 18 114/74 94 L 07/26/24 00:05 64 19 123/81 97 07/25/24 20:21 98.0 F 80 18 106/65 95 07/25/24 16:20 98.1 F 61 18 115/68 96 Intake and Output 07/25/24 07/26/24 07/26/24 22:59 06:59 14:59 Other: Weight 65.227 kg Results 07/26/24 01:00 07/26/24 01:00 Cardiac Enzymes 07/25/24 07/25/24 07/25/24 Range/Units 16:33 16:33 21:22 AST 22 (17-59) U/L Troponin I 0.014 0.017 (0.000-0.034) ng/mL 07/26/24 07/26/24 07/26/24 Range/Units 00:55 01:00 06:54 AST 22 (17-59) U/L Troponin I 0.020 0.021 (0.000-0.034) ng/mL Coagulation 07/25/24 Range/Units 16:33 PT 12.9 H (10.0-12.5) sec APTT 24.4 (22.0-30.0) sec CBC 07/25/24 07/26/24 Range/Units 16:33 01:00 WBC 5.16 5.02 (4.50-10.00) 10*3/uL RBC 4.61 4.13 L (4.40-5.60) 10*6/uL Hgb 15.3 14.1 (13.0-17.0) g/dL Hct 43.6 39.2 L (39.6-50.0) % Plt Count 152 133 L (140-440) 10*3/uL Comprehensive Metabolic Panel 07/25/24 07/26/24 Range/Units 16:33 01:00 Sodium 136 L 135 L (137-145) mmol/L Potassium 4.3 3.7 (3.5-5.1) mmol/L Chloride 102 106 (98-107) mmol/L Carbon Dioxide 23 20 L (22-30) mmol/L BUN 20 20 (9-20) mg/dL Creatinine 0.78 0.71 (0.66-1.25) mg/dL Glucose 150 H 110 H (74-99) mg/dL Calcium 9.0 8.7 (8.4-10.2) mg/dL AST 22 22 (17-59) U/L ALT 22 21 (4-49) U/L Alkaline Phosphatase 40 44 (38-126) U/L Total Protein 6.8 6.3 (6.3-8.2) g/dL Albumin 4.2 3.7 (3.5-5.0) g/dL Current Medications Generic Name Dose Route Start Last Admin Trade Name Freq PRN Reason Stop Dose Admin Apixaban 5 mg 07/26/24 09:00 07/26/24 08:22 Apixaban 5 Mg Tab PO 5 mg BID ANEL Administration Protocol Atorvastatin Calcium 20 mg 07/26/24 21:00 Atorvastatin 20 Mg Tab PO HS ANEL Dapagliflozin 5 mg 07/26/24 09:00 07/26/24 08:22 Dapagliflozin Propanediol 5 Mg Tablet PO 5 mg DAILY ANEL Administration Sodium Chloride 1,000 mls @ 20 mls/hr 07/25/24 19:45 07/26/24 00:04 Saline 0.9% IV 20 mls/hr .Q24H ANEL Administration Melatonin 6 mg 07/26/24 21:00 07/26/24 00:04 Melatonin 3 Mg Tablet PO 6 mg HS ANEL Administration Metformin HCl 500 mg 07/26/24 07:30 07/26/24 08:22 Metformin 500 Mg Tab PO 500 mg BID-W/MEALS ANEL Administration Metoprolol Succinate 50 mg 07/26/24 09:00 07/26/24 08:22 Metoprolol Succinate (Er) 50 Mg Tab.Er.24h PO 50 mg BID ANEL Administration Naloxone HCl 0.2 mg 07/25/24 19:40 Naloxone 0.4 Mg/Ml 1 Ml Vial IV Q2M PRN Opioid Reversal Ondansetron HCl 4 mg 07/25/24 19:40 Ondansetron 4 Mg/2 Ml Vial IVP Q8HR PRN Nausea And Vomiting Intake and Output 07/25/24 07/26/24 07/26/24 22:59 06:59 14:59 Other: Weight 65.227 kg 07/26/24 01:00 07/26/24 01:00
--- NOTE | 2024-07-26 11:46 | US ---
EXAMINATION TYPE: US carotid duplex BILAT DATE OF EXAM: 07/26/2024 COMPARISON: NONE CLINICAL INDICATION: Male, 84 years old with history of dizziness; TECHNIQUE: Grayscale, color Doppler and spectral Doppler evaluation of the bilateral carotid systems and vertebral arteries. Indirect Doppler criteria was utilized. FINDINGS: EXAM MEASUREMENTS: RIGHT: Peak Systolic Velocity (PSV) cm/sec ----- Right CCA: 45.7 ----- Right ICA: 109.1 ----- Right ECA: 70.0 ICA/CCA ratio: 2.4 RIGHT: End Diastole cm/sec ----- Right CCA: 10.2 ----- Right ICA: 24.5 ----- Right ECA: 0.0 LEFT: Peak Systolic Velocity (PSV) cm/sec ----- Left CCA: 53.4 ----- Left ICA: 59.9 ----- Left ECA: 35.0 ICA/CCA ratio: 1.1 LEFT: End Diastole cm/sec ----- Left CCA: 9.5 ----- Left ICA: 19.3 ----- Left ECA: 0.0 VERTEBRALS (direction of flow): Right Vertebral: Antegrade Left Vertebral: Antegrade Rhythm: Normal IMPRESSION: Right: Less than 50% stenosis of the carotid bifurcation. Left: Less than 50% stenosis of the carotid bifurcation. Criteria for Assigning % of Stenosis / Diameter reduction (Estimation based on the indirect measurements of the internal carotid artery velocities (ICA PSV). 1. Normal (no stenosis)=ICA PSV < 180 cm/s: ratio < 2.0: ICA EDV<40 cm/s. 2. Less than 50% stenosis=ICA PSV < 180 cm/s: ratio < 2.0: ICA EDV<40 cm/s. 3. 50 to 69% stenosis=ICA PSV of 180 to 230 cm/s: ration 2.0 ? 4.0: ICA EDV 40-100 cm/s. PSV 125-180 cm/sec and ICA/CCA PSV Ratio ? 2.0 is also consistent with 50-69% stenosis 4. Greater than 70% stenosis to near occlusion= ICA PSV > 230 cm/s: ratio > 4.0: ICA EDV > 100 cm/s. 5. Near occlusion= ICA PSV velocities may be low or undetectable: variable ratio and ICA EDV. 6. Total occlusion=unable to detect flow. [facility], , 07/26/2024 11:44 AM
[2024-07-26] MEDS: ATORVASTATIN 20 MG TAB PO SCH (20:37)
[2024-07-27] MEDS: PANTOPRAZOLE 40 MG TABLET PO SCH (06:29)
[2024-07-27 08:16] LABS: Basophils # (A) 0.02 X 10*3/uL (0.00-0.10); Basophils % (A) 0.5 %; Eosinophils # (A) 0.14 X 10*3/uL (0.04-0.35); Eosinophils % (A) 3.3 %; HCT 39.8 % (39.6-50.0); HGB 13.2 g/dL (13.0-17.0); Lymphocytes # (A) 1.21 X 10*3/uL (0.90-5.00); Lymphocytes % (A) 28.3 %; MCH 32.4 pg (27.0-32.0); MCHC 33.2 g/dL (32.0-37.0); MCV 97.5 FL (80.0-97.0); Mean Platelet Volume 9.9 FL (9.5-12.2); Monocytes # (A) 0.47 X 10*3/uL (0.20-1.00); NRBC Per 100 WBC 0 X 10*3/uL (0.00-0.01); Neutrophils # (A) 2.43 X 10*3/uL (1.80-7.70); Neutrophils % (A) 56.7 %; Platelet Count 119 X 10*3/uL (140-440); RBC 4.08 X 10*6/uL (4.40-5.60); RDW 12.3 % (11.5-14.5); WBC 4.28 X 10*3/uL (4.50-10.00)
[2024-07-27 08:21] LABS: ALT 21 U/L (10-49); AST 23 U/L (14-35); Albumin 3.6 g/dL (3.8-4.9); Albumin/Globulin Ratio 1.57 Ratio (1.60-3.17); Alkaline Phosphatase 34 U/L (41-126); BUN/Creat Ratio 20.71 Ratio (12.00-20.00); Blood Urea Nitrogen 14.5 mg/dL (9.0-27.0); Calcium 8.5 mg/dL (8.7-10.3); Carbon Dioxide 21.7 mmol/L (21.6-31.8); Chloride 107 mmol/L (96-109); Globulin 2.3 g/dL (1.6-3.3); Glucose 127 mg/dL (70-110); Potassium 3.8 mmol/L (3.5-5.5); Sodium 140 mmol/L (135-145); Total Bilirubin 0.5 mg/dL (0.3-1.2); Total Protein 5.9 g/dL (6.2-8.2)
--- NOTE | 2024-07-27 08:22 | P.PN ---
Subjective This is an 84-year-old male patient of Dr. Win with past medical history of frequent PVCs, atypical chest pain, hypertension, dyslipidemia, diabetes mellitus type 2 with A1c of 9.2. We have been asked to evaluate the patient for atrial fibrillation. Patient states that he came into the hospital because he had some weakness and dizziness. He denies chest pain. He states his balance was off. He states it all started yesterday and his daughter got contacted EMS and brought him into the hospital. He is feeling better at this time and states he had a good bowel movement this morning which helped and the shakiness is improved. Blood pressure 114/74, heart rate 124, pulse ox 97% on room air. Patient is seen today in the emergency center waiting for a bed on the cardiac stepdown unit. -EKG: Atrial flutter 60 bpm -Laboratory studies: Troponin negative x 4. proBNP 2500. TSH 1.29. Liver function test are normal. WBC 5, hemoglobin 14, sodium 135, potassium 3.7, creatinine 0.71. -Home cardiac medications: Eliquis 5 mg twice daily, atorvastatin 20 mg at bedtime, Farxiga 5 mg daily, metoprolol succinate 50 mg twice daily. -Echocardiogram performed 06/2024 at [facility] revealed preserved LVEF, mild LVH, mild RV dilatation. -Lexiscan Cardiolite stress test performed in the office 03/14/2023 was overall normal Lexiscan myocardial perfusion stress test. Normal LV systolic function. Normal hemodynamic and EKG response to Lexiscan infusion. Mild dizziness and nausea with Lexiscan which resolved with aminophylline. -Event monitor 12/13/2022 - 12/17/2022 revealed primary rhythm sinus average heart rate of 75 with minimum 55 and maximum 149. 2 pauses of 2 seconds. Less than 1% PAC burden. PVC burden 4.38. 07/27 Patient seen and examined. Patient states overall he feels somewhat stronger and no significant lightheadedness. No shortness of breath. No chest pain. Patient converted to sinus rhythm overnight. Physical examination: Gen: This is an 84-year-old male in no acute distress. VS: reviewed HEENT: Head is atraumatic, normocephalic. Pupils equal, round. Sclerae is anicteric. NECK: Supple. No JVD. LUNGS: Clear to auscultation. No wheezes or rhonchi. No intercostal retractions. HEART: Regular rate and rhythm. No murmur. ABDOMEN: Soft No tenderness. EXTREMITIES: No pedal edema. No calf tenderness. NEUROLOGICAL: Patient is awake, alert and oriented x3. Assessment: Generalized weakness Altered mental status Typical atrial flutter, currently sinus rhythm History of frequent PVCs Hypertension Dyslipidemia Diabetes mellitus type 2 with A1c 9.2. Plan: Resume patient's home cardiac medications No adjustment made to metoprolol today Continue telemetry monitoring No need to repeat echocardiogram as this was done in June Patient converted and continue with current regimen. Patient is cleared for discharge from cardiology perspective. Patient will follow-up with Dr. Win for outpatient cardioversion. Thank you kindly for this consultation. Objective - Vital Signs Vital signs: Vital Signs Temp 97.6 F 07/27/24 07:00 Pulse 57 L 07/27/24 07:00 Resp 17 07/27/24 07:00 BP 131/72 07/27/24 07:00 Pulse Ox 92 L 07/27/24 07:00 FiO2 Intake & Output 07/26/24 07/27/24 07/27/24 18:59 06:59 18:59 Weight 65.227 kg Other: Voiding Method Toilet # Voids 2 - Labs CBC & Chem 7: 07/27/24 05:11 07/26/24 01:00 Labs: Abnormal Lab Results - Last 24 Hours (Table) 07/27/24 Range/Units 05:11 WBC 4.28 L (4.50-10.00) X 10*3/uL RBC 4.08 L (4.40-5.60) X 10*6/uL MCV 97.5 H (80.0-97.0) FL MCH 32.4 H (27.0-32.0) pg Plt Count 119 L (140-440) X 10*3/uL
[2024-07-27] MEDS: ARTIFICIAL TEARS-HYPROMELLOSE DROPS 15 ML BTL BOTH EYES PRN (11:56)
--- NOTE | 2024-07-27 13:06 | CA ---
Transthoracic Echo Report Name: Erlin Jameson Age: 84 Gender: M : 1940 Exam Date: 07/27/2024 08:26 Exam Location: [facility] Ht (in): 65 Wt (lb): 143 Ordering Physician: Latasha Galicia MD Attending/Referring Phys: Field Marketing Manager Luma Mejia RDCS Procedure CPT: Indications: dizziness Cardiac Hx: Technical Quality: Fair Contrast 1: Total Dose (mL): Contrast 2: Total Dose (mL): MEASUREMENTS (Male / Female) Normal Values 2D ECHO LV Diastolic Diameter PLAX 3.9 cm 4.2 - 5.9 / 3.9 - 5.3 cm LV Systolic Diameter PLAX 1.9 cm IVS Diastolic Thickness 0.9 cm 0.6 - 1.0 / 0.6 - 0.9 cm LVPW Diastolic Thickness 1.2 cm 0.6 - 1.0 / 0.6 - 0.9 cm LV Relative Wall Thickness 0.5 RV Internal Dim ED PLAX 2.6 cm LA Systolic Diameter LX 3.5 cm 3.0 - 4.0 / 2.7 - 3.8 cm LV Diastolic Volume MOD BP 31.0 cm??? 67 - 155 / 56 - 104 cm??? LV Systolic Volume MOD BP 11.8 cm??? 22 - 58 / 19 - 49 cm??? LV Ejection Fraction MOD BP 61.8 % >= 55 % LV Cardiac Index MOD BP 664.5 cm???/min???m??? LV Diastolic Volume MOD 4C 38.5 cm??? LV Systolic Volume MOD 4C 10.4 cm??? LV Ejection Fraction MOD 4C 73.1 % LV Cardiac Index MOD 4C 976.1 cm???/min???m??? LV Diastolic Length 4C 6.5 cm LV Systolic Length 4C 5.5 cm LV Diastolic Volume MOD 2C 25.3 cm??? LV Systolic Volume MOD 2C 13.2 cm??? LV Ejection Fraction MOD 2C 47.9 % LV Cardiac Index MOD 2C 419.9 cm???/min???m??? LV Diastolic Length 2C 6.2 cm LV Systolic Length 2C 5.3 cm LA Volume 54.9 cm??? 18 - 58 / 22 - 52 cm??? LA Volume Index 31.7 cm???/m??? 16 - 28 cm???/m??? M-MODE Aortic Root Diameter MM 3.2 cm LA Systolic Diameter MM 3.5 cm LA Ao Ratio MM 1.1 AV Cusp Separation MM 1.3 cm FINDINGS Left Ventricle Left ventricular ejection fraction is estimated at 55-60%. Normal left ventricular systolic function with no obvious regional wall motion abnormalities. Left ventricular cavity size at the upper limits of normal.left ventricular wall thickness normal. Right Ventricle Mild right ventricular dilatation. Right Atrium Moderate right atrial dilatation. Left Atrium Moderate left atrial dilatation. Mitral Valve Aortic Valve Tricuspid Valve Pulmonic Valve Pericardium No pericardial or pleural effusion. Aorta CONCLUSIONS Left ventricular ejection fraction 55 to 60% Moderate biatrial enlargement No pericardial effusion Previewed by: Dr. Ashwin Sal DO (Electronically Signed) Final Date: 27 July 2024 13:05
[2024-07-27] MEDS: ACETAMINOPHEN TAB 500 MG TAB PO PRN (14:35)
--- NOTE | 2024-07-27 18:09 | P.PN ---
Subjective Progress Note Date: 07/27/24 Erlin Jameson is an 84-year-old male patient of Dr. Chou who presented with concerns of weakness and dizziness. Patient reports this has been going on for couple days. Patient has a past medical history of atrial fibrillation in which she is maintained on Eliquis, diabetes mellitus. Current vital signs temp 97.8, heart rate 78, respiratory rate 18, blood pressure 114/74 with pulse ox of 97% on room air 2D echo completed showing atrial flutter with a heart rate of 60. Lab work completed showing white blood cell 5.02, hemoglobin 14.1, creatinine 0.71, bun 20 troponins negative. At this time patient has been resumed back on his Eliquis. Patient denies chest pain or shortness of breath. Patient denies nausea vomiting or diarrhea. Patient denies any urinary burning or frequency cardiology services will be consulted will order 2D echo and carotid Doppler and repeat labs in a.m. 07/27/2024 patient was seen and examined on the medical floor he is alert and oriented x 3 in no apparent distress there is no fever or chills he is still complaining of weakness and dizziness no chest pain no shortness of breath no cough no nausea or vomiting no abdominal pain no diarrhea and no urinary sy mptoms. Input from cardiology reviewed possible discharge to home tomorrow if stable Objective - Vital Signs Vital signs: Vital Signs Temp 98.1 F 07/27/24 14:25 Pulse 75 07/27/24 14:25 Resp 16 07/27/24 14:25 BP 164/78 07/27/24 14:25 Pulse Ox 100 07/27/24 14:25 FiO2 Intake & Output 07/26/24 07/27/24 07/27/24 18:59 06:59 18:59 Intake Total 358 Balance 358 Weight 65.227 kg Intake: Oral 358 Other: Voiding Method Toilet Toilet # Voids 2 3 # Bowel Movements 1 - Exam Head normocephalic Neck supple Lungs clear to auscultation bilaterally no wheezing or crackles Heart irregular rate known atrial fibrillation Abdomen is soft nontender nondistended positive bowel sounds no hepatosplenomegaly Extremities no edema Neuro alert and orientated to 3 - Labs CBC & Chem 7: 07/27/24 05:11 07/27/24 05:11 Labs: Abnormal Lab Results - Last 24 Hours (Table) 07/27/24 07/27/24 Range/Units 05:11 05:11 WBC 4.28 L (4.50-10.00) X 10*3/uL RBC 4.08 L (4.40-5.60) X 10*6/uL MCV 97.5 H (80.0-97.0) FL MCH 32.4 H (27.0-32.0) pg Plt Count 119 L (140-440) X 10*3/uL BUN/Creatinine Ratio 20.71 H (12.00-20.00) Ratio Glucose 127 H (70-110) mg/dL Calcium 8.5 L (8.7-10.3) mg/dL Alkaline Phosphatase 34 L (41-126) U/L Total Protein 5.9 L (6.2-8.2) g/dL Albumin 3.6 L (3.8-4.9) g/dL Albumin/Globulin Ratio 1.57 L (1.60-3.17) Ratio Assessment and Plan Assessment: 1. Increased dizziness and weakness 2. Atrial fibrillation patient does have a history of resumed back on Eliquis 3. History of diabetes mellitus 4. History of prostate cancer DVT prophylaxis Eliquis. GI prophylax Protonix Cardiology services consulted 2D echo carotid Doppler and chest x-ray ordered Repeat labs in a.m.
[2024-07-28 08:07] VITALS: BP 152/73; PULSE 57; RESP 16; TEMP 97.5
--- NOTE | 2024-07-28 10:06 | P.DS ---
Providers Date of admission: 07/25/24 19:41 Expected date of discharge: 07/28/24 Attending physician: Latasha Galicia Primary care physician: Kira Cristina [facility] Course: Discharge diagnosis 1. Increased dizziness and weakness 2. Atrial fibrillation patient does have a history of resumed back on Eliquis 3. History of diabetes mellitus 4. History of prostate cancer Hospital course Erlin Jameson is an 84-year-old male patient of Dr. Chou who presented with concerns of weakness and dizziness. Patient reports this has been going on for couple days. Patient has a past medical history of atrial fibrillation in which she is maintained on Eliquis, diabetes mellitus. Current vital signs temp 97.8, heart rate 78, respiratory rate 18, blood pressure 114/74 with pulse ox of 97% on room air 2D echo completed showing atrial flutter with a heart rate of 60. Lab work completed showing white blood cell 5.02, hemoglobin 14.1, creatinine 0.71, bun 20 troponins negative. At this time patient has been resumed back on his Eliquis. Patient denies chest pain or shortness of breath. Patient denies nausea vomiting or diarrhea. Patient denies any urinary burning or frequency cardiology services will be consulted will order 2D echo and carotid Doppler and repeat labs in a.m. 07/27/2024 patient was seen and examined on the medical floor he is alert and oriented x 3 in no apparent distress there is no fever or chills he is still complaining of weakness and dizziness no chest pain no shortness of breath no cough no nausea or vomiting no abdominal pain no diarrhea and no urinary symptoms. Input from cardiology reviewed possible discharge to home tomorrow if stable On 07/28/2024 patient is alert and oriented x 3. Patient has been cleared for discharge from cardiology standpoint follow-up outpatient with cardiology for possible cardioversion. Patient has been up ambulating with walker denies dizziness or weakness. Will discharge patient home follow-up outpatient for further management Patient Condition at Discharge: Stable Plan - Discharge Summary New Discharge Prescriptions: Continue Apixaban [Eliquis] 5 mg PO BID #60 tab Dapagliflozin Propanediol [Farxiga] 5 mg PO DAILY #30 tab Metoprolol Succinate (ER) [Toprol XL] 50 mg PO BID #60 tab Atorvastatin [Lipitor] 20 mg PO HS #30 tab metFORMIN HCL 500 mg PO BID #60 tab Discharge Medication List Apixaban [Eliquis] 5 mg PO BID #60 tab 07/07/24 [Rx] Atorvastatin [Lipitor] 20 mg PO HS #30 tab 07/07/24 [Rx] Dapagliflozin Propanediol [Farxiga] 5 mg PO DAILY #30 tab 07/07/24 [Rx] Metoprolol Succinate (ER) [Toprol XL] 50 mg PO BID #60 tab 07/07/24 [Rx] metFORMIN HCL 500 mg PO BID #60 tab 07/07/24 [Rx] Follow up Appointment(s)/Referral(s): None,Stated [REFERRING] - 1-2 days Kira Cristina MD [Primary Care Provider] - 1 Week Eric Win MD [Medical Doctor] - 1 Week Discharge Disposition: HOME SELF-CARE
== END 2024-07-28 13:39 | disposition home or self-care (01) ==
LOC: EC 16:14 → 6NMEDSUR 19:41
PROVIDERS: ADMIT Internal Medicine; ATTEND Internal Medicine
DX: I48.19 Other persistent atrial fibrillation (principal); I48.3 Typical atrial flutter; E86.0 Dehydration; E11.9 Type 2 diabetes mellitus without complications; I49.3 Ventricular premature depolarization; I11.9 Hypertensive heart disease without heart failure; E78.5 Hyperlipidemia, unspecified; R41.82 Altered mental status, unspecified; R11.0 Nausea; R63.0 Anorexia; Z79.01 Long term (current) use of anticoagulants; Z79.84 Long term (current) use of oral hypoglycemic drugs; Z79.899 Other long term (current) drug therapy; Z85.46 Personal history of malignant neoplasm of prostate
CPT/HCPCS: 96360; 96361; 99285; 36415; 93005 ×2; 93308; 97161; 83880; 80053 ×3; 83605; 83735 ×2; 84100 ×2; 84443; 84484 ×2; 85025 ×3; 85610; 85730; 71046; 93880; G0378 ×4